=== PATIENT | female | born 1985 | race African-American/Black ===

== ENCOUNTER 2019-10-05 12:14 | Emergency (ER) | payer BC, OTHER ==
[2019-10-05] MEDS ORDERED: Magnesium Sulfate (4.06 MEQ/ML) 5 GM/10 ML SDV IV ONE (12:24)
[2019-10-05] MEDS ORDERED: Prochlorperazine 10 MG in Sodium Chloride 0.9% 50 ML IV ONE (12:24)
[2019-10-05] MEDS ORDERED: Sodium Chloride 0.9% 1,000 ML IV ONE (12:24)
[2019-10-05] MEDS ORDERED: Acetaminophen 500 MG Tab PO ONE (12:24)
[2019-10-05] MEDS ORDERED: diphenhydrAMINE 50 MG/ML SDV IVPUSH ONE (12:24)
--- NOTE | 2019-10-05 12:42 | CT ---
INDICATION: Stroke symptoms. TECHNIQUE: CT head without IV contrast. FINDINGS: Minimal mucosal thickening in the right maxillary sinus. No acute intracranial hemorrhage, edema, or mass effect. Minimal cerebral and cerebellar atrophy. Remainder negative. IMPRESSION: No acute intracranial disease. Please note that all CT scans at this facility use dose modulation, iterative reconstruction, and/or weight-based dosing when appropriate to reduce radiation dose to as low as reasonably achievable. Dictated by Chris Araiza MD @ Oct 05 2019 12:41PM Signed by Dr. Chris Araiza @ Oct 05 2019 12:41PM
[2019-10-05 12:45] LABS: BLOOD UREA NITROGEN,BUN 9 mg/dL (7.0-18.0); CARBON DIOXIDE,CO2 25.7 mmol/L (21.0-32.0); CHLORIDE,CL 106 mmol/L (98-107); GLUCOSE RANDOM 105 mg/dL (74-106); SODIUM,NA 140 mmol/L (136-145)
[2019-10-05] MEDS: Magnesium Sulfate/Water 2 GM in Premix Bag 1 BAG IV ONE ×2 (12:50→13:35)
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
== END 2019-10-05 13:56 | disposition home or self-care (01) ==
LOC: MW.ED 12:14
DX: R51 Headache (principal)
CPT/HCPCS: 36415; 70450; 80048; 84703; 85025; 85610; 85652; 85730; 93005; 96365; 96375; 99284; A9270; J0780; J1200; J7030; J7050; 99283; J3475

== ENCOUNTER 2021-04-23 09:25 | Observation (INO) | payer BC ==
[2021-04-23] MEDS ORDERED: Sodium Chloride 0.9% 1,000 ML IV ONE (09:55)
[2021-04-23] MEDS ORDERED: Ondansetron 4 MG/2 ML SDV ONE (10:12)
[2021-04-23] MEDS ORDERED: Ketorolac 15 MG/ML SDV ONE (10:12)
[2021-04-23] MEDS ORDERED: Ketorolac 30 MG/ML SDV IVPUSH ONE (10:17)
[2021-04-23] MEDS ORDERED: Ketorolac 15 MG/ML SDV IVPUSH STA (10:17)
[2021-04-23 10:31] LABS: BLOOD UREA NITROGEN,BUN 8 mg/dL (7.0-18.0); CARBON DIOXIDE,CO2 24.9 mmol/L (21.0-32.0); CHLORIDE,CL 104 mmol/L (98-107); GLUCOSE RANDOM 118 mg/dL (74-106); LIPASE 107 U/L (73-393); POTASSIUM,K 3.8 mmol/L (3.5-5.1); SODIUM,NA 136 mmol/L (136-145)
--- NOTE | 2021-04-23 10:33 | EDM.PDOC ---
ED HPI GENERAL MEDICAL PROBLEM - General Chief Complaint: Abdominal Pain Stated Complaint: REALLY BAD PAIN IN GUT Time Seen by Provider: 04/23/21 09:27 - History of Present Illness INITIAL COMMENTS - FREE TEXT/NARRATIVE: History of present illness: [] This patient began to have abdominal pain this morning. About 3 weeks ago she contracted COVID-19 and was test positive. Her symptoms have been over for more than 2 weeks. This morning she developed right upper quadrant pain with nausea. She is not vomiting at this point. The pain is markedly severe and sharp. Nothing really makes it worse or better. She is never had such pain before. She had a kidney stone with her in the past but this is not similar. Review of systems: As per history of present illness and below otherwise all systems reviewed and negative. Past medical history: As per history of present illness and as reviewed below otherwise noncontributory. Surgical history: As per history of present illness and as reviewed below otherwise n oncontributory. Social history: No reported history of drug or alcohol abuse. Family history: As per history of present illness and as reviewed below otherwise noncontributory. Physical exam: Constitutional - well developed, well-nourished and in no acute distress HEENT - normocephalic, no evidence of trauma - external nose and mouth normal - no mass in neck and no JVD - mucosae moist EYES - full EOM, PERRL, no icterus - no evidence of inflammation, injection, or drainage Respiratory - no respiratory distress, equal bilateral expansion, lungs clear to auscultation and no abnormal lung sounds Cardiovascular - Regular Rhythm with S1 and S2 appreciated and no murmur, gallop or rub. GI -tender in the right upper quadrant with palpable Vu sign positive. Guards right upper quadrant. Abdomen soft without distension or organomegaly - normal bowel sounds - no rebound Musculoskeletal no gross deformity of long bones or joints - no tenderness, swelling or edema Neurologic - Alert and oriented times four - CN II-XII grossly intact - motor sensory and coordination symmetrically normal Psychiatric - appropriate mood and affect with normal thought content Hematologic - No petechiae or purpura - mucosa appropriate color and sclera not pale - normal nail bed color and refill Integument - no rash or evidence of trauma - normal turgor Diagnostics: [] Therapeutics: [] Impression: [] Plan: [] Definitive disposition and diagnosis as appropriate pending reevaluation and review of above. Right Upper Abdomen Pain Score (Numeric/FACES): 4 - Related Data Allergies Allergy/AdvReac Type Severity Reaction Status Date / Time shellfish derived Allergy Anaphylactic Verified 04/23/21 09:38 Shock sulfur dioxide Allergy Cannot Verified 04/23/21 09:38 Remember Home Meds: Home Meds norgestimate-ethinyl estradioL [Ome-Zm-Rklxelci Tablet] 1 tab PO DAILY 04/23/21 [History] Past Medical History - Past Health History Medical/Surgical History: Denies Medical/Surgical History Psychiatric History: Reports: Bipolar Hematologic History: Reports: Anemia - Infectious Disease History Infectious Disease History: Reports: Novel Coronavirus Social & Family History - Family History Family Medical History: No Pertinent Family History - Tobacco Use Tobacco Use Status *Q: Current Every Day Tobacco User Years of Tobacco use: 4 Packs/Tins Daily: 0 - Caffeine Use Caffeine Use: Reports: Coffee - Recreational Drug Use Recreational Drug Use: No ED ROS GENERAL - Review of Systems Review Of Systems: Comprehensive ROS is negative, except as noted in HPI. ED EXAM, GENERAL - Physical Exam Exam: See Below Free Text/Narrative:: My physical exam is in the HPI Course - Vital Signs Text/Narrative:: 1157 the gallbladder is prominent on the CT with no obvious stone. Liver functions are elevated as well and compared to old chart that is new. Ultrasound done on an emergency basis to make sure she does not have a common duct stone obstructing her common duct and need to be transferred somewhere where she can have an ERCP. 1306 hrs. ultrasound reveals possible acute cholecystitis with cholelithiasis. The patient's pain is gone. She has no elevation of her total white count. The patient wants to schedule elective surgery. Her AST and ALT are slightly elevated. Discussed with Dr. Snowden and she felt like the patient should return immediately if her pain returns or she gets a fever confusion. The patient will make an appointment to schedule expeditious cholecystectomy if she does not have further symptoms. Last Recorded V/S: Last Vital Signs Temp 36.8 C 04/23/21 09:40 Pulse 76 04/23/21 09:40 Resp 18 04/23/21 09:40 BP 139/90 04/23/21 09:40 Pulse Ox 99 04/23/21 09:40 - Orders/Labs/Meds Labs: Laboratory Tests 04/23/21 04/23/21 04/23/21 Range/Units 09:55 09:55 11:15 WBC 10.84 (4.0-11.0) K/uL RBC 4.51 (4.30-5.90) M/uL Hgb 10.0 L (12.0-16.0) g/dL Hct 32.1 L (36.0-46.0) % MCV 71.2 L (80.0-98.0) fL MCH 22.2 L (27.0-32.0) pg MCHC 31.2 (31.0-37.0) g/dL RDW Std Deviation 50.3 (28.0-62.0) fl RDW Coeff of Ronni 19 H (11.0-15.0) % Plt Count 649 H (150-400) K/uL MPV 9.20 (7.40-12.00) fL Neut % (Auto) 77.6 (48.0-80.0) % Lymph % (Auto) 14.5 L (16.0-40.0) % [place] % (Auto) 7.3 (0.0-15.0) % Eos % (Auto) 0.4 (0.0-7.0) % Baso % (Auto) 0.2 (0.0-1.5) % Neut # (Auto) 8.4 H (1.4-5.7) K/uL Lymph # (Auto) 1.6 (0.6-2.4) K/uL [place] # (Auto) 0.8 (0.0-0.8) K/uL Eos # (Auto) 0.0 (0.0-0.7) K/uL Baso # (Auto) 0.0 (0.0-0.1) K/uL Nucleated RBC % 0.0 /100WBC Nucleated RBCs # 0 K/uL Sodium 136 (136-145) mmol/L Potassium 3.8 (3.5-5.1) mmol/L Chloride 104 (98-107) mmol/L Carbon Dioxide 24.9 (21.0-32.0) mmol/L BUN 8 (7.0-18.0) mg/dL Creatinine 0.9 (0.6-1.0) mg/dL Est Cr Clr Drug Dosing 98.76 mL/min Estimated GFR (MDRD) > 60.0 ml/min Glucose 118 H (74-106) mg/dL Calcium 8.1 L (8.5-10.1) mg/dL Total Bilirubin 0.5 (0.2-1.0) mg/dL AST 170 H (15-37) IU/L ALT 99 H (14-63) IU/L Alkaline Phosphatase 87 (46-116) U/L Total Protein 7.1 (6.4-8.2) g/dL Albumin 3.0 L (3.4-5.0) g/dL Globulin 4.1 H (2.6-4.0) g/dL Albumin/Globulin Ratio 0.7 L (0.9-1.6) Lipase 107 (73-393) U/L Urine Color YELLOW Urine Appearance CLEAR Urine pH 6.5 (5.0-8.0) Ur Specific [place] 1.020 (1.001-1.035) Urine Protein NEGATIVE (NEGATIVE) mg/dL Urine Glucose (UA) NEGATIVE (NEGATIVE) mg/dL Urine Ketones NEGATIVE (NEGATIVE) mg/dL Urine Occult Blood NEGATIVE (NEGATIVE) Urine Nitrite NEGATIVE (NEGATIVE) Urine Bilirubin NEGATIVE (NEGATIVE) Urine Urobilinogen 2.0 H (<2.0) EU/dL Ur Leukocyte Esterase NEGATIVE (NEGATIVE) Meds: Medications Discontinued Medications Generic Name Dose Route Start Last Admin Trade Name Freq PRN Reason Stop Dose Admin Sodium Chloride 1,000 mls @ 999 mls/hr 04/23/21 09:55 04/23/21 09:55 Normal Saline IV 04/23/21 10:55 999 mls/hr .Bolus ONE Administration Ketorolac Tromethamine Confirm 04/23/21 10:12 04/23/21 10:51 Ketorolac 15 Mg/Ml Sdv Administered 04/23/21 10:13 Not Given Dose 15 mg .ROUTE .STK-MED ONE Ketorolac Tromethamine 15 mg 04/23/21 10:17 04/23/21 11:04 Ketorolac 30 Mg/Ml Sdv IVPUSH 04/23/21 10:18 Not Given ONETIME ONE Ketorolac Tromethamine 15 mg 04/23/21 10:17 04/23/21 10:17 Ketorolac 15 Mg/Ml Sdv IVPUSH 04/23/21 10:18 15 mg ONETIME STA Administration Ondansetron HCl Confirm 04/23/21 10:12 04/23/21 10:52 Ondansetron 4 Mg/2 Ml Sdv Administered 04/23/21 10:13 Not Given Dose 4 mg .ROUTE .STK-MED ONE Ondansetron HCl 4 mg 04/23/21 10:49 04/23/21 11:03 Ondansetron 4 Mg/2 Ml Sdv IVPUSH 04/23/21 10:50 4 mg ONETIME ONE Administration Departure - Departure Time of Disposition: 13:07 Disposition: Home, Self-Care 01 Condition: Good Clinical Impression: Acute cholecystitis, Cholelithiasis, Biliary colic - Discharge Information Instructions: Cholelithiasis, [id number], Cholecystitis, [id number] Referrals: PCP,None [Primary Care Provider] - Forms: ED Department Discharge Additional Instructions: The surgeon Dr. Snowden wants you to return if you have even return of your pain. Certainly return if you have fever and confusion with pain in your abdomen. Regardless she should call the surgery department for expeditious scheduling of cholecystectomy with Dr. Snowden [facility] - General Surgery [address], [address] [place] [address] The following information is given to patients seen in the emergency department who are being discharged to home. This information is to outline your options for follow-up care. We provide all patients seen in our emergency department with a follow-up referral. The need for follow-up, as well as the timing and circumstances, are variable depending upon the specifics of your emergency department visit. If you don't have a primary care physician on staff, we will provide you with a referral. We always advise you to contact your personal physician following an emergency department visit to inform them of the circumstance of the visit and for follow-up with them and/or the need for any referrals to a consulting specialist. The emergency department will also refer you to a specialist when appropriate. This referral assures that you have the opportunity for follow-up care with a specialist. All of these measure are taken in an effort to provide you with optimal care, which includes your follow-up. Under all circumstances we always encourage you to contact your private physician who remains a resource for coordinating your care. When calling for follow-up care, please make the office aware that this follow-up is from your recent emergency room visit. If for any reason you are refused follow-up, please contact the [facility] Emergency Department at and asked to speak to the emergency department charge nurse. Sepsis Event Note (ED) - Evaluation Sepsis Screening Result: No Definite Risk - Focused Exam Vital Signs: Vital Signs Temp Pulse Resp BP Pulse Ox 04/23/21 09:40 36.8 C 76 18 139/90 99
[2021-04-23] MEDS ORDERED: Ondansetron 4 MG/2 ML SDV IVPUSH ONE (10:49)
--- NOTE | 2021-04-23 11:48 | CT ---
INDICATION: Right-sided abdominal and pelvic pain. TECHNIQUE: CT abdomen and pelvis without contrast. COMPARISON: None FINDINGS: No urolithiasis or hydronephrosis is present on this noncontrast enhanced exam. In the lower thorax there are no masses or effusions. The visualized lung bases are clear. The liver, spleen, pancreas, adrenal glands, kidneys, appendix, decompressed urinary bladder, uterus and right ovary appear normal. The gallbladder is mildly distended and could represent a fasting state. No cholelithiasis is evident with CT scanning. If symptoms warrant consider further assessment with gallbladder ultrasound. There is a 7 x 5 centimeter left adnexal cystic lesion likely representing an ovarian cyst. Ultrasound could be obtained for further assessment. No gastric or small bowel abnormalities are seen. A moderate amount of fecal loading is present within the proximal and mid colon. The abdominal aorta is normal in caliber with no lymphadenopathy evident. A small amount of ascites in the pelvis likely is physiologic. No osseous abnormalities are seen. IMPRESSION: 1. No urolithiasis or hydronephrosis on this noncontrast enhanced exam. 2. Mildly prominent gallbladder with no cholelithiasis seen. Gallbladder ultrasound could be obtained for further assessment. 3. Left adnexal/ovarian cyst. Pelvic ultrasound could be obtained to further characterize this. 4. Moderate amount of fecal loading in the proximal and mid colon. 5. Other findings are as noted above. Please note that all CT scans at this facility use dose modulation, iterative reconstruction, and/or weight-based dosing when appropriate to reduce radiation dose to as low as reasonably achievable. Dictated by Mayank Cosby MD @ 04/23/2021 11:47:34 AM (Electronically Signed)
--- NOTE | 2021-04-23 12:43 | US ---
INDICATION: Right upper abdominal pain. TECHNIQUE: Ultrasound abdomen complete. Sonographic images of the entire abdomen were obtained using burroughs-scale and color Doppler. COMPARISON: CT scanning of the abdomen pelvis performed earlier today. FINDINGS: The liver is homogeneous in echogenicity with no hepatic mass or intrahepatic biliary duct dilation. The gallbladder contains multiple dependent layering small gallstones with no gallbladder wall thickening. A small amount of pericholecystic fluid is seen and there is a reported positive sonographic Vu`s sign. The common duct measures 4 millimeters in maximum diameter which is within the normal range. No right renal or pancreatic abnormality is demonstrated IMPRESSION: 1. Cholelithiasis with mild pericholecystic fluid and a reported sonographic Vu sign. The gallbladder is mildly distended. Findings are suspicious for early acute cholecystitis. 2. Other findings are as discussed above. Dictated by Mayank Cosby MD @ 04/23/2021 12:40:49 PM (Electronically Signed)
[2021-04-23] MEDS ORDERED: Piperacillin/Tazobactam 4.5 GM in Sodium Chloride 0.9% 100 ML IV ONE (13:28)
[2021-04-23] MEDS ORDERED: Ondansetron 4 MG/2 ML SDV IVPUSH PRN (14:54)
[2021-04-23] MEDS ORDERED: HYDROmorphone 1 MG/ML Syringe IVPUSH PRN (14:54)
[2021-04-23] MEDS ORDERED: Sodium Chloride 0.9% 10 ML SDV IV PRN (14:54)
[2021-04-23] MEDS ORDERED: Sodium Chloride 0.9% 2.5 ML Syringe FLUSH PRN (14:54)
[2021-04-23] MEDS ORDERED: Sodium Chloride 0.9% 10 ML Syringe FLUSH PRN (14:54)
[2021-04-23] MEDS ORDERED: diphenhydrAMINE 50 MG/ML SDV IVPUSH PRN (14:54)
--- NOTE | 2021-04-23 15:12 | PCM.HP.2 ---
H&P History of Present Illness - General Date of Service: 04/23/21 Admit Problem/Dx: Admission Diagnosis/Problem Admission Diagnosis/Problem Cholecystitis Source of Information: Patient History Limitations: Reports: No Limitations - History of Present Illness Initial Comments - Free Text/Narative: Patient is a 36 year old female with a past medical history significant for c hronic anemia due to menorrhagia, asthma, COVID (diagnosed on April 05) who presents to the ER with upper abdominal pain. The pain started this morning. It woke her from sleep. It was located in the RUQ. It radiated to the back and into her right shoulder. The pain did not improve with positioning or going to the bathroom. She presented to the ER. She had stable vital signs. She is anemic wit h a hgb of 10. She is currently on control to control her menorrhagia. Her WBC was normal. Her Plt wer 649. Her ast and alt were midly elevated but bilirubin was normal. A CT scan was performed which was normal other than a mildly distended gallbladder. US was performed which showed cholelithiasis with mild pericholecystic fluid and positive berg's sign consistent with early acute cholecystitis. she was given fluids and pain meds with improvement in her pain. She denies ever needing nebulizers this month with her COVID infection. She denies any respiratory symptoms today. She denies fever. Right Upper Abdomen Pain Score (Numeric/FACES): 4 - Related Data Allergies/Adverse Reactions: Allergies Allergy/AdvReac Type Severity Reaction Status Date / Time shellfish derived Allergy Anaphylactic Verified 04/23/21 09:38 Shock sulfur dioxide Allergy Cannot Verified 04/23/21 09:38 Remember Home Medications: Home Meds norgestimate-ethinyl estradioL [Brl-Tl-Oeqxrhyn Tablet] 1 tab PO DAILY 04/23/21 [History] Past Medical History - Past Health History Medical/Surgical History: Denies Medical/Surgical History Respiratory History: Reports: Asthma, Other (See Below) (recent COVID infection) Gastrointestinal History: Reports: Other (See Below) (Umbilical hernia) 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: 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 Psychiatric History: Reports: Bipolar Hematologic History: Reports: Anemia - Infectious Disease History Infectious Disease History: Reports: Novel Coronavirus - Past Surgical History HEENT Surgical History: Reports: None Cardiovascular Surgical History: Reports: None Respiratory Surgical History: Reports: None GI Surgical History: Reports: Hernia, Abdominal Female Surgical History: Reports: Tubal Ligation Endocrine Surgical History: Reports: None Social & Family History - Family History Family Medical History: No Pertinent Family History - Tobacco Use Tobacco Use Status *Q: Current Every Day Tobacco User Years of Tobacco use: 4 Packs/Tins Daily: 0 - Caffeine Use Caffeine Use: Reports: Coffee - Recreational Drug Use Recreational Drug Use: No H&P Review of Systems - Review of Systems: Review Of Systems: Comprehensive ROS is negative, except as noted in HPI. Exam - Exam Exam: See Below - Vital Signs Vital Signs: Last Vital Signs Temp 36.8 C 04/23/21 09:40 Pulse 70 04/23/21 14:46 Resp 18 04/23/21 09:40 BP 133/85 04/23/21 11:21 Pulse Ox 99 04/23/21 14:46 Weight: 103.419 kg - Exam Quality Assessment: Supplemental Oxygen General: Alert, Oriented HEENT: Conjunctiva Clear, Mucosa Moist & [place], Posterior Pharynx Clear Neck: Supple, Trachea Midline Lungs: Clear to Auscultation, Normal Respiratory Effort Cardiovascular: Regular Rate, Regular Rhythm GI/Abdominal Exam: Soft, Non-Tender, No Distention, No Mass - Patient Data Lab Results Last 24 hrs: Laboratory Results - last 24 hr 04/23/21 04/23/21 04/23/21 Range/Units 09:55 09:55 11:15 WBC 10.84 (4.0-11.0) K/uL RBC 4.51 (4.30-5.90) M/uL Hgb 10.0 L (12.0-16.0) g/dL Hct 32.1 L (36.0-46.0) % MCV 71.2 L (80.0-98.0) fL MCH 22.2 L (27.0-32.0) pg MCHC 31.2 (31.0-37.0) g/dL RDW Std Deviation 50.3 (28.0-62.0) fl RDW Coeff of Ronni 19 H (11.0-15.0) % Plt Count 649 H (150-400) K/uL MPV 9.20 (7.40-12.00) fL Neut % (Auto) 77.6 (48.0-80.0) % Lymph % (Auto) 14.5 L (16.0-40.0) % [place] % (Auto) 7.3 (0.0-15.0) % Eos % (Auto) 0.4 (0.0-7.0) % Baso % (Auto) 0.2 (0.0-1.5) % Neut # (Auto) 8.4 H (1.4-5.7) K/uL Lymph # (Auto) 1.6 (0.6-2.4) K/uL [place] # (Auto) 0.8 (0.0-0.8) K/uL Eos # (Auto) 0.0 (0.0-0.7) K/uL Baso # (Auto) 0.0 (0.0-0.1) K/uL Nucleated RBC % 0.0 /100WBC Nucleated RBCs # 0 K/uL Sodium 136 (136-145) mmol/L Potassium 3.8 (3.5-5.1) mmol/L Chloride 104 (98-107) mmol/L Carbon Dioxide 24.9 (21.0-32.0) mmol/L BUN 8 (7.0-18.0) mg/dL Creatinine 0.9 (0.6-1.0) mg/dL Est Cr Clr Drug Dosing 98.76 mL/min Estimated GFR (MDRD) > 60.0 ml/min Glucose 118 H (74-106) mg/dL Calcium 8.1 L (8.5-10.1) mg/dL Total Bilirubin 0.5 (0.2-1.0) mg/dL AST 170 H (15-37) IU/L ALT 99 H (14-63) IU/L Alkaline Phosphatase 87 (46-116) U/L Total Protein 7.1 (6.4-8.2) g/dL Albumin 3.0 L (3.4-5.0) g/dL Globulin 4.1 H (2.6-4.0) g/dL Albumin/Globulin Ratio 0.7 L (0.9-1.6) Lipase 107 (73-393) U/L Urine Color YELLOW Urine Appearance CLEAR Urine pH 6.5 (5.0-8.0) Ur Specific [place] 1.020 (1.001-1.035) Urine Protein NEGATIVE (NEGATIVE) mg/dL Urine Glucose (UA) NEGATIVE (NEGATIVE) mg/dL Urine Ketones NEGATIVE (NEGATIVE) mg/dL Urine Occult Blood NEGATIVE (NEGATIVE) Urine Nitrite NEGATIVE (NEGATIVE) Urine Bilirubin NEGATIVE (NEGATIVE) Urine Urobilinogen 2.0 H (<2.0) EU/dL Ur Leukocyte Esterase NEGATIVE (NEGATIVE) Result Diagrams: 04/23/21 09:55 04/23/21 09:55 Sepsis Event Note - Evaluation Sepsis Screening Result: No Definite Risk - Focused Exam Vital Signs: Vital Signs Temp Pulse Resp BP Pulse Ox 04/23/21 14:46 70 99 04/23/21 11:21 60 133/85 96 04/23/21 10:44 60 136/81 98 04/23/21 10:13 73 146/84 H 100 04/23/21 09:40 36.8 C 76 18 139/90 99 - Problem List (1) Acute cholecystitis SNOMED Code(s): 56843212 ICD Code: K81.0 - ACUTE CHOLECYSTITIS Status: Acute Current Visit: Yes Problem List Initiated/Reviewed/Updated: Yes Orders Last 24hrs: Active Orders 24 hr Category Date Time Status Patient Status [ADT] Routine ADT 04/23/21 14:54 Active EKG Documentation Completion [RC] STAT Care 04/23/21 14:38 Active Intake and Output [RC] QSHIFT Care 04/23/21 14:59 Active Oxygen Therapy [RC] PRN Care 04/23/21 14:54 Active Up ad Elvia [RC] ASDIRECTED Care 04/23/21 14:54 Active Vital Signs [RC] PER UNIT ROUTINE Care 04/23/21 14:54 Active Clear Liquid Diet [DIET] Diet 04/23/21 Lunch Active NPO After Midnight [Nothing per Oral After Midnight Diet 04/23/21 Dinner Active Diet] [DIET] Chest 1V Frontal [CR] Stat Exams 04/23/21 14:38 Taken CBC W/O DIFF,HEMOGRAM [HEME] AM Lab 04/24/21 05:11 Ordered COMPREHENSIVE METABOLIC PN,CMP [CHEM] AM Lab 04/24/21 05:11 Ordered TYPE AND SCREEN [BBK] Routine Lab 04/23/21 14:50 Received Acetaminophen/oxyCODONE [Percocet 325-5 MG] Med 04/23/21 14:54 Ordered 2 tab PO Q4H PRN HYDROmorphone [Dilaudid] Med 04/23/21 14:54 Ordered 0.5 mg IVPUSH Q1H PRN Lactated Ringers [Ringers, Lactated] 1,000 ml Med 04/23/21 15:00 Ordered IV ASDIRECTED Ondansetron [Zofran] Med 04/23/21 14:54 Ordered 4 mg IVPUSH Q6H PRN Piperacillin/Tazobactam [Piperacil-Tazobact] 3.375 gm Med 04/23/21 20:30 Ordered Sodium Chloride 0.9% [Normal Saline] 50 ml IV Q6H Sodium Chloride 0.9% [Normal Saline] Med 04/23/21 14:54 Ordered 10 ml IV ASDIRECTED PRN Sodium Chloride 0.9% [Saline Flush] Med 04/23/21 14:54 Ordered 10 ml FLUSH ASDIRECTED PRN Sodium Chloride 0.9% [Saline Flush] Med 04/23/21 14:54 Ordered 2.5 ml FLUSH ASDIRECTED PRN diphenhydrAMINE [Benadryl] Med 04/23/21 14:54 Ordered 25 mg IVPUSH Q4H PRN Peripheral IV Insertion Adult [OM.PC] Urgent Oth 04/23/21 14:54 Ordered Resuscitation Status Routine Resus Stat 04/23/21 14:54 Ordered Medication Orders Diphenhydramine HCl (Diphenhydramine 50 Mg/Ml Sdv) 25 mg IVPUSH Q4H PRN PRN Reason: Itching Hydromorphone HCl (Hydromorphone 2 Mg/Ml Syringe) 0.5 mg IVPUSH Q1H PRN PRN Reason: Pain (severe 7-10) Lactated Ringer's (Ringers, Lactated) 1,000 mls @ 125 mls/hr IV ASDIRECTED YUSEF Piperacillin Sod/Tazobactam (Sod 3.375 gm/ Sodium Chloride) 50 mls @ 100 mls/hr IV Q6H YUSEF Ondansetron HCl (Ondansetron 4 Mg/2 Ml Sdv) 4 mg IVPUSH Q6H PRN PRN Reason: Nausea/Vomiting Oxycodone/Acetaminophen (Acetaminophen/Oxycodone 325-5 Mg Tab) 2 tab PO Q4H PRN PRN Reason: Pain (moderate 4-6) Sodium Chloride (Sodium Chloride 0.9% 10 Ml Syringe) 10 ml FLUSH ASDIRECTED PRN PRN Reason: Keep Vein Open Sodium Chloride (Sodium Chloride 0.9% 2.5 Ml Syringe) 2.5 ml FLUSH ASDIRECTED PRN PRN Reason: Keep Vein Open Sodium Chloride (Sodium Chloride 0.9% 10 Ml Sdv) 10 ml IV ASDIRECTED PRN PRN Reason: IV Use Assessment/Plan Comment:: The patient and I discussed the pathophysiology of biliary disease. The treatment for acute cholecystitis is cholecystectomy. With her recent COVID infection she is at higher risk for complications, however this needs to be performed. I will attempt this laparoscopically but convert to open should I be unable to perform this safely. We discussed the risks including respiratory comp lications, the risk for DVTs, the risk of bleeding, infection or damaging surrounding structures. She verbalized understanding and wishes to proceed. Will get a CXR, EKG and a type and screen before surgery tomorrow. I did speak to anesthesia about her case.
--- NOTE | 2021-04-23 15:25 | CR ---
INDICATION: COVID-19 positive. TECHNIQUE: Chest 1 view. COMPARISON: None. FINDINGS: Cardiovascular and mediastinum: Heart size and vasculature are normal in caliber and appearance. Lungs and pleural spaces: Lungs are clear. No sign of infiltrate or mass. No sign of pleural effusion. No pneumothorax. Bones and soft tissues: No significant findings. IMPRESSION: Negative chest. Lungs are clear. Dictated by Ari Camacho MD @ 04/23/2021 3:23:44 PM (Electronically Signed)
[2021-04-23] MEDS: Lactated Ringers 1,000 ML IV SCH (18:48)
[2021-04-23] MEDS: Piperacillin/Tazobactam 3.375 GM in Sodium Chloride 0.9% 50 ML IV SCH (20:19)
[2021-04-24] MEDS: Piperacillin/Tazobactam 3.375 GM in Sodium Chloride 0.9% 50 ML IV SCH ×2 (02:40→08:44)
[2021-04-24] MEDS: Lactated Ringers 1,000 ML IV SCH (03:22)
[2021-04-24 06:25] LABS: BLOOD UREA NITROGEN,BUN 4 mg/dL (7.0-18.0); CARBON DIOXIDE,CO2 27.1 mmol/L (21.0-32.0); CHLORIDE,CL 104 mmol/L (98-107); GLUCOSE RANDOM 91 mg/dL (74-106); POTASSIUM,K 4.1 mmol/L (3.5-5.1); SODIUM,NA 139 mmol/L (136-145)
[2021-04-24] MEDS ORDERED: Bupivacaine 0.5% 30 ML SDV ONE (08:32)
[2021-04-24] MEDS ORDERED: Octyl 2-Cyanoacrylate 1 Tube ONE (08:32)
--- NOTE | 2021-04-24 08:44 | PCM.SURGPN ---
- General Info Date of Service: 04/24/21 Functional Status: Reports: Pain Controlled, Urinating. Denies: New Symptoms - Review of Systems General: Reports: No Symptoms Pulmonary: Reports: No Symptoms Cardiovascular: Reports: No Symptoms Gastrointestinal: Reports: No Symptoms Musculoskeletal: Reports: No Symptoms - Patient Data Vitals - Most Recent: Last Vital Signs Temp 36.6 C 04/24/21 08:01 Pulse 77 04/24/21 08:01 Resp 16 04/24/21 08:01 BP 129/82 04/24/21 08:01 Pulse Ox 95 04/24/21 08:01 Weight - Most Recent: 131.36 kg I&O - Last 24 Hours: Intake & Output 04/23/21 04/24/21 04/24/21 22:59 06:59 14:59 Intake Total 50 1889 Output Total 1200 Balance 50 689 Lab Results Last 24 Hrs: Laboratory Results - last 24 hr 04/23/21 04/23/21 04/23/21 Range/Units 09:55 09:55 11:15 WBC 10.84 (4.0-11.0) K/uL RBC 4.51 (4.30-5.90) M/uL Hgb 10.0 L (12.0-16.0) g/dL Hct 32.1 L (36.0-46.0) % MCV 71.2 L (80.0-98.0) fL MCH 22.2 L (27.0-32.0) pg MCHC 31.2 (31.0-37.0) g/dL RDW Std Deviation 50.3 (28.0-62.0) fl RDW Coeff of Ronni 19 H (11.0-15.0) % Plt Count 649 H (150-400) K/uL MPV 9.20 (7.40-12.00) fL Neut % (Auto) 77.6 (48.0-80.0) % Lymph % (Auto) 14.5 L (16.0-40.0) % [place] % (Auto) 7.3 (0.0-15.0) % Eos % (Auto) 0.4 (0.0-7.0) % Baso % (Auto) 0.2 (0.0-1.5) % Neut # (Auto) 8.4 H (1.4-5.7) K/uL Lymph # (Auto) 1.6 (0.6-2.4) K/uL [place] # (Auto) 0.8 (0.0-0.8) K/uL Eos # (Auto) 0.0 (0.0-0.7) K/uL Baso # (Auto) 0.0 (0.0-0.1) K/uL Nucleated RBC % 0.0 /100WBC Nucleated RBCs # 0 K/uL Sodium 136 (136-145) mmol/L Potassium 3.8 (3.5-5.1) mmol/L Chloride 104 (98-107) mmol/L Carbon Dioxide 24.9 (21.0-32.0) mmol/L BUN 8 (7.0-18.0) mg/dL Creatinine 0.9 (0.6-1.0) mg/dL Est Cr Clr Drug Dosing 98.76 mL/min Estimated GFR (MDRD) > 60.0 ml/min Glucose 118 H (74-106) mg/dL Calcium 8.1 L (8.5-10.1) mg/dL Total Bilirubin 0.5 (0.2-1.0) mg/dL AST 170 H (15-37) IU/L ALT 99 H (14-63) IU/L Alkaline Phosphatase 87 (46-116) U/L Total Protein 7.1 (6.4-8.2) g/dL Albumin 3.0 L (3.4-5.0) g/dL Globulin 4.1 H (2.6-4.0) g/dL Albumin/Globulin Ratio 0.7 L (0.9-1.6) Lipase 107 (73-393) U/L HCG, Qual (NEG) Urine Color YELLOW Urine Appearance CLEAR Urine pH 6.5 (5.0-8.0) Ur Specific [place] 1.020 (1.001-1.035) Urine Protein NEGATIVE (NEGATIVE) mg/dL Urine Glucose (UA) NEGATIVE (NEGATIVE) mg/dL Urine Ketones NEGATIVE (NEGATIVE) mg/dL Urine Occult Blood NEGATIVE (NEGATIVE) Urine Nitrite NEGATIVE (NEGATIVE) Urine Bilirubin NEGATIVE (NEGATIVE) Urine Urobilinogen 2.0 H (<2.0) EU/dL Ur Leukocyte Esterase NEGATIVE (NEGATIVE) Blood Type Antibody Screen 04/23/21 04/24/21 04/24/21 Range/Units 14:50 05:46 05:46 WBC 9.74 (4.0-11.0) K/uL RBC 4.21 L (4.30-5.90) M/uL Hgb 9.2 L (12.0-16.0) g/dL Hct 30.3 L (36.0-46.0) % MCV 72.0 L (80.0-98.0) fL MCH 21.9 L (27.0-32.0) pg MCHC 30.4 L (31.0-37.0) g/dL RDW Std Deviation 50.7 (28.0-62.0) fl RDW Coeff of Ronni 19 H (11.0-15.0) % Plt Count 604 H (150-400) K/uL MPV 9.20 (7.40-12.00) fL Neut % (Auto) (48.0-80.0) % Lymph % (Auto) (16.0-40.0) % [place] % (Auto) (0.0-15.0) % Eos % (Auto) (0.0-7.0) % Baso % (Auto) (0.0-1.5) % Neut # (Auto) (1.4-5.7) K/uL Lymph # (Auto) (0.6-2.4) K/uL [place] # (Auto) (0.0-0.8) K/uL Eos # (Auto) (0.0-0.7) K/uL Baso # (Auto) (0.0-0.1) K/uL Nucleated RBC % 0.0 /100WBC Nucleated RBCs # 0 K/uL Sodium 139 (136-145) mmol/L Potassium 4.1 (3.5-5.1) mmol/L Chloride 104 (98-107) mmol/L Carbon Dioxide 27.1 (21.0-32.0) mmol/L BUN 4 L (7.0-18.0) mg/dL Creatinine 1.0 (0.6-1.0) mg/dL Est Cr Clr Drug Dosing 88.89 mL/min Estimated GFR (MDRD) > 60.0 ml/min Glucose 91 (74-106) mg/dL Calcium 8.7 (8.5-10.1) mg/dL Total Bilirubin 0.5 (0.2-1.0) mg/dL AST 116 H (15-37) IU/L ALT 167 H (14-63) IU/L Alkaline Phosphatase 89 (46-116) U/L Total Protein 6.6 (6.4-8.2) g/dL Albumin 2.7 L (3.4-5.0) g/dL Globulin 3.9 (2.6-4.0) g/dL Albumin/Globulin Ratio 0.7 L (0.9-1.6) Lipase (73-393) U/L HCG, Qual (NEG) Urine Color Urine Appearance Urine pH (5.0-8.0) Ur Specific [place] (1.001-1.035) Urine Protein (NEGATIVE) mg/dL Urine Glucose (UA) (NEGATIVE) mg/dL Urine Ketones (NEGATIVE) mg/dL Urine Occult Blood (NEGATIVE) Urine Nitrite (NEGATIVE) Urine Bilirubin (NEGATIVE) Urine Urobilinogen (<2.0) EU/dL Ur Leukocyte Esterase (NEGATIVE) Blood Type O POSITIVE Antibody Screen NEGATIVE 04/24/21 Range/Units 05:46 WBC (4.0-11.0) K/uL RBC (4.30-5.90) M/uL Hgb (12.0-16.0) g/dL Hct (36.0-46.0) % MCV (80.0-98.0) fL MCH (27.0-32.0) pg MCHC (31.0-37.0) g/dL RDW Std Deviation (28.0-62.0) fl RDW Coeff of Ronni (11.0-15.0) % Plt Count (150-400) K/uL MPV (7.40-12.00) fL Neut % (Auto) (48.0-80.0) % Lymph % (Auto) (16.0-40.0) % [place] % (Auto) (0.0-15.0) % Eos % (Auto) (0.0-7.0) % Baso % (Auto) (0.0-1.5) % Neut # (Auto) (1.4-5.7) K/uL Lymph # (Auto) (0.6-2.4) K/uL [place] # (Auto) (0.0-0.8) K/uL Eos # (Auto) (0.0-0.7) K/uL Baso # (Auto) (0.0-0.1) K/uL Nucleated RBC % /100WBC Nucleated RBCs # K/uL Sodium (136-145) mmol/L Potassium (3.5-5.1) mmol/L Chloride (98-107) mmol/L Carbon Dioxide (21.0-32.0) mmol/L BUN (7.0-18.0) mg/dL Creatinine (0.6-1.0) mg/dL Est Cr Clr Drug Dosing mL/min Estimated GFR (MDRD) ml/min Glucose (74-106) mg/dL Calcium (8.5-10.1) mg/dL Total Bilirubin (0.2-1.0) mg/dL AST (15-37) IU/L ALT (14-63) IU/L Alkaline Phosphatase (46-116) U/L Total Protein (6.4-8.2) g/dL Albumin (3.4-5.0) g/dL Globulin (2.6-4.0) g/dL Albumin/Globulin Ratio (0.9-1.6) Lipase (73-393) U/L HCG, Qual NEGATIVE (NEG) Urine Color Urine Appearance Urine pH (5.0-8.0) Ur Specific [place] (1.001-1.035) Urine Protein (NEGATIVE) mg/dL Urine Glucose (UA) (NEGATIVE) mg/dL Urine Ketones (NEGATIVE) mg/dL Urine Occult Blood (NEGATIVE) Urine Nitrite (NEGATIVE) Urine Bilirubin (NEGATIVE) Urine Urobilinogen (<2.0) EU/dL Ur Leukocyte Esterase (NEGATIVE) Blood Type Antibody Screen Med Orders - Current: Current Medications Diphenhydramine HCl (Diphenhydramine 50 Mg/Ml Sdv) 25 mg IVPUSH Q4H PRN PRN Reason: Itching Hydromorphone HCl (Hydromorphone 1 Mg/Ml Syringe) 0.5 mg IVPUSH Q1H PRN PRN Reason: Pain (severe 7-10) Lactated Ringer's (Ringers, Lactated) 1,000 mls @ 125 mls/hr IV ASDIRECTED COUNTS INCLUDE 234 BEDS AT THE [facility] Last Admin: 04/24/21 03:22 Dose: 125 mls/hr Documented by: Piperacillin Sod/Tazobactam (Sod 3.375 gm/ Sodium Chloride) 50 mls @ 100 mls/hr IV Q6H YUSEF Last Admin: 04/24/21 02:40 Dose: 100 mls/hr Documented by: Ondansetron HCl (Ondansetron 4 Mg/2 Ml Sdv) 4 mg IVPUSH Q6H PRN PRN Reason: Nausea/Vomiting Oxycodone/Acetaminophen (Acetaminophen/Oxycodone 325-5 Mg Tab) 2 tab PO Q4H PRN PRN Reason: Pain (moderate 4-6) Sodium Chloride (Sodium Chloride 0.9% 10 Ml Syringe) 10 ml FLUSH ASDIRECTED PRN PRN Reason: Keep Vein Open Sodium Chloride (Sodium Chloride 0.9% 2.5 Ml Syringe) 2.5 ml FLUSH ASDIRECTED PRN PRN Reason: Keep Vein Open Sodium Chloride (Sodium Chloride 0.9% 10 Ml Sdv) 10 ml IV ASDIRECTED PRN PRN Reason: IV Use Discontinued Medications Bupivacaine HCl (Bupivacaine 0.5% 30 Ml Sdv) Confirm Administered Dose 30 ml .ROUTE .STK-MED ONE Stop: 04/24/21 08:33 Sodium Chloride (Normal Saline) 1,000 mls @ 999 mls/hr IV .Bolus ONE Stop: 04/23/21 10:55 Last Admin: 04/23/21 09:55 Dose: 999 mls/hr Documented by: Piperacillin Sod/Tazobactam (Sod 4.5 gm/ Sodium Chloride) 100 mls @ 100 mls/hr IV ONETIME ONE Stop: 04/23/21 14:27 Last Admin: 04/23/21 14:04 Dose: 100 mls/hr Documented by: Ketorolac Tromethamine (Ketorolac 15 Mg/Ml Sdv) Confirm Administered Dose 15 mg .ROUTE .STK-MED ONE Stop: 04/23/21 10:13 Last Admin: 04/23/21 10:51 Dose: Not Given Documented by: Ketorolac Tromethamine (Ketorolac 30 Mg/Ml Sdv) 15 mg IVPUSH ONETIME ONE Stop: 04/23/21 10:18 Last Admin: 04/23/21 11:04 Dose: Not Given Documented by: Ketorolac Tromethamine (Ketorolac 15 Mg/Ml Sdv) 15 mg IVPUSH ONETIME STA Stop: 04/23/21 10:18 Last Admin: 04/23/21 10:17 Dose: 15 mg Documented by: Octyl Cyanoacrylate (Octyl 2-Cyanoacrylate 1 Tube) Confirm Administered Dose 1 applic .ROUTE .STK-MED ONE Stop: 04/24/21 08:33 Ondansetron HCl (Ondansetron 4 Mg/2 Ml Sdv) Confirm Administered Dose 4 mg .ROUTE .STK-MED ONE Stop: 04/23/21 10:13 Last Admin: 04/23/21 10:52 Dose: Not Given Documented by: Ondansetron HCl (Ondansetron 4 Mg/2 Ml Sdv) 4 mg IVPUSH ONETIME ONE Stop: 04/23/21 10:50 Last Admin: 04/23/21 11:03 Dose: 4 mg Documented by: - Exam General: Alert, Oriented, Cooperative HEENT: Pupils Equal, Pupils Reactive Lungs: Normal Respiratory Effort Cardiovascular: Regular Rate GI/Abdominal Exam: Soft, Non-Tender, No Distention, No Mass, Hernia (umbilical ) Sepsis Event Note - Evaluation Sepsis Screening Result: No Definite Risk - Focused Exam Vital Signs: Vital Signs Temp Pulse Resp BP Pulse Ox 04/24/21 08:01 36.6 C 77 16 129/82 95 04/24/21 03:46 36.3 C 62 15 127/61 95 04/24/21 00:41 36.9 C 60 15 130/76 98 - Problem List & Annotations (1) Acute cholecystitis SNOMED Code(s): 93879986 Code(s): K81.0 - ACUTE CHOLECYSTITIS Status: Acute Current Visit: Yes - Problem List Review Problem List Initiated/Reviewed/Updated: Yes - My Orders Last 24 Hours: Active Orders 24 hr Category Date Time Status Patient Status [ADT] Routine ADT 04/23/21 14:54 Active Intake and Output [RC] QSHIFT Care 04/23/21 14:59 Active Oxygen Therapy [RC] PRN Care 04/23/21 14:54 Active Up ad [place]via [RC] ASDIRECTED Care 04/23/21 14:54 Active Vital Signs [RC] Q4H Care 04/23/21 14:54 Active Clear Liquid Diet [DIET] Diet 04/23/21 Lunch Active NPO After Midnight [Nothing per Oral After Midnight Diet 04/23/21 Dinner Active Diet] [DIET] Acetaminophen/oxyCODONE [Percocet 325-5 MG] Med 04/23/21 14:54 Active 2 tab PO Q4H PRN HYDROmorphone [Dilaudid] Med 04/23/21 14:54 Active 0.5 mg IVPUSH Q1H PRN Lactated Ringers [Ringers, Lactated] 1,000 ml Med 04/23/21 15:00 Active IV ASDIRECTED Ondansetron [Zofran] Med 04/23/21 14:54 Active 4 mg IVPUSH Q6H PRN Piperacillin/Tazobactam [Piperacil-Tazobact] 3.375 gm Med 04/23/21 20:30 Active Sodium Chloride 0.9% [Normal Saline] 50 ml IV Q6H Sodium Chloride 0.9% [Normal Saline] Med 04/23/21 14:54 Active 10 ml IV ASDIRECTED PRN Sodium Chloride 0.9% [Saline Flush] Med 04/23/21 14:54 Active 10 ml FLUSH ASDIRECTED PRN Sodium Chloride 0.9% [Saline Flush] Med 04/23/21 14:54 Active 2.5 ml FLUSH ASDIRECTED PRN diphenhydrAMINE [Benadryl] Med 04/23/21 14:54 Active 25 mg IVPUSH Q4H PRN Peripheral IV Insertion Adult [OM.PC] Urgent Oth 04/23/21 14:54 Ordered Resuscitation Status Routine Resus Stat 04/23/21 14:54 Ordered Medication Orders Diphenhydramine HCl (Diphenhydramine 50 Mg/Ml Sdv) 25 mg IVPUSH Q4H PRN PRN Reason: Itching Hydromorphone HCl (Hydromorphone 1 Mg/Ml Syringe) 0.5 mg IVPUSH Q1H PRN PRN Reason: Pain (severe 7-10) Lactated Ringer's (Ringers, Lactated) 1,000 mls @ 125 mls/hr IV ASDIRECTED YUSEF Last Admin: 04/24/21 03:22 Dose: 125 mls/hr Documented by: Infusion: 04/24/21 02:48 Dose: 125 mls/hr Documented by: Admin: 04/23/21 18:48 Dose: 125 mls/hr Documented by: LEANDRO Piperacillin Sod/Tazobactam (Sod 3.375 gm/ Sodium Chloride) 50 mls @ 100 mls/hr IV Q6H COUNTS INCLUDE 234 BEDS AT THE [facility] Last Admin: 04/24/21 02:40 Dose: 100 mls/hr Documented by: Infusion: 04/23/21 20:49 Dose: 100 mls/hr Documented by: Admin: 04/23/21 20:19 Dose: 100 mls/hr Documented by: SANJUANITA Ondansetron HCl (Ondansetron 4 Mg/2 Ml Sdv) 4 mg IVPUSH Q6H PRN PRN Reason: Nausea/Vomiting Oxycodone/Acetaminophen (Acetaminophen/Oxycodone 325-5 Mg Tab) 2 tab PO Q4H PRN PRN Reason: Pain (moderate 4-6) Sodium Chloride (Sodium Chloride 0.9% 10 Ml Syringe) 10 ml FLUSH ASDIRECTED PRN PRN Reason: Keep Vein Open Sodium Chloride (Sodium Chloride 0.9% 2.5 Ml Syringe) 2.5 ml FLUSH ASDIRECTED PRN PRN Reason: Keep Vein Open Sodium Chloride (Sodium Chloride 0.9% 10 Ml Sdv) 10 ml IV ASDIRECTED PRN PRN Reason: IV Use - Plan Plan (Free Text/Narrative):: The patient and I discussed that she has an umbilical hernia. I will use this for one of my port sites and close it at the end of surgery. She is in agreement with this. I explained that I will just repair it with suture at this time, and there is a chance of returning again. When I review her images she has rectus diastasis and with this area being repaired in the past, her fascia in the area is weak. It was also mentioned in her CT report that she has a left adenexal cyst. There is limited US coverage on weekends, so I did not get a pelvic US. During the case, I will attempt to photograph this. I told her she will need follow up for this with a balling head tender. Her hgb came down to 9.2 which is not unexpected with her fluid resuscitation. She was typed and screened yesterday. AST and ALT relatively unchanged. Her bili is normal. Will proceed to the OR this am.
[2021-04-24] MEDS ORDERED: Ondansetron 4 MG/2 ML SDV ONE (08:45)
[2021-04-24] MEDS ORDERED: Sugammadex Sodium 200 MG/2 ML VIAL ONE (08:45)
[2021-04-24] MEDS ORDERED: Rocuronium Bromide 50 MG/5 ML Syringe ONE (08:45)
[2021-04-24] MEDS ORDERED: Lidocaine 2% 5 ML SDV ONE (08:45)
[2021-04-24] MEDS ORDERED: Propofol 200 MG/20 ML SDV ONE (08:45)
[2021-04-24] MEDS ORDERED: fentaNYL 100 MCG/2 ML SDV ONE ×3 (08:46→11:16)
[2021-04-24] MEDS ORDERED: Midazolam 1 MG/ML 2 ML SDV ONE (08:46)
[2021-04-24] MEDS ORDERED: Indocyanine Green 25 MG SDV ONE (09:03)
[2021-04-24] MEDS ORDERED: fentaNYL 100 MCG/2 ML SDV IVPUSH PRN (09:42)
[2021-04-24] MEDS ORDERED: Ondansetron 4 MG/2 ML SDV IVPUSH PRN (09:42)
[2021-04-24] MEDS ORDERED: HYDROmorphone 1 MG/ML Syringe IVPUSH PRN (09:42)
[2021-04-24] MEDS ORDERED: Naloxone 0.4 MG/ML SDV IVPUSH PRN (09:42)
[2021-04-24] MEDS ORDERED: Albuterol 0.083% 2.5 MG/3 ML Neb Soln NEB PRN (09:42)
[2021-04-24] MEDS ORDERED: Metoclopramide 10 MG/2 ML SDV IVPUSH PRN (09:42)
[2021-04-24] MEDS ORDERED: Morphine 2 MG/ML SYRINGE IVPUSH PRN (09:42)
--- NOTE | 2021-04-24 09:48 | PCM.POSTAN ---
POST ANESTHESIA ASSESSMENT - MENTAL STATUS Mental Status: Alert, Oriented - VITAL SIGNS Vital Signs: Last Vital Signs Temp 37.5 c 04/24/21 1134 Pulse 85 04/24/21 1134 Resp 16 04/24/21 1134 BP 124/75 04/24/21 1134 Pulse Ox 99 04/24/21 1134 - RESPIRATORY Respiratory Status: Respiratory Rate WNL, Airway Patent, O2 Saturation Stable - CARDIOVASCULAR CV Status: Pulse Rate WNL, Blood Pressure Stable - GASTROINTESTINAL GI Status: No Symptoms - POST OP HYDRATION Hydration Status: Adequate & Stable
--- NOTE | 2021-04-24 09:48 | PCM.PREANE ---
Preanesthetic Assessment - Procedure Proposed Procedure: Lap Aleyda and umbilical hernia repair. - Anesthesia/Transfusion/Family Hx Anesthesia History: Prior Anesthesia Without Reaction Family History of Anesthesia Reaction: No - Review of Systems General: No Symptoms Pulmonary: No Symptoms Cardiovascular: No Symptoms Gastrointestinal: Abdominal Pain, Decreased Appetite, Nausea Neurological: No Symptoms Other: Reports: None - Physical Assessment NPO Status Date: 04/24/21 NPO Status Time: 00:00 Vital Signs: Last Vital Signs Temp 97.8 F 04/24/21 08:01 Pulse 77 04/24/21 08:01 Resp 16 04/24/21 08:01 BP 129/82 04/24/21 08:01 Pulse Ox 95 04/24/21 08:01 Height: 6 ft Weight: 131.36 kg ASA Class: 3E Mental Status: Alert & Oriented x3 Dentition: Reports: Normal Dentition, Missing Tooth/Teeth Thyro-Mental Finger Breadths: 3 Mouth Opening Finger Breadths: 3 ROM/Head Extension: Full Lungs: Clear to Auscultation, Normal Respiratory Effort Cardiovascular: Regular Rate, Regular Rhythm - Lab Values: Laboratory Last Values WBC 9.74 K/uL (4.0-11.0) 04/24/21 05:46 RBC 4.21 M/uL (4.30-5.90) L 04/24/21 05:46 Hgb 9.2 g/dL (12.0-16.0) L 04/24/21 05:46 Hct 30.3 % (36.0-46.0) L 04/24/21 05:46 MCV 72.0 fL (80.0-98.0) L 04/24/21 05:46 MCH 21.9 pg (27.0-32.0) L 04/24/21 05:46 MCHC 30.4 g/dL (31.0-37.0) L 04/24/21 05:46 RDW Std Deviation 50.7 fl (28.0-62.0) 04/24/21 05:46 RDW Coeff of Ronni 19 % (11.0-15.0) H 04/24/21 05:46 Plt Count 604 K/uL (150-400) H 04/24/21 05:46 MPV 9.20 fL (7.40-12.00) 04/24/21 05:46 Neut % (Auto) 77.6 % (48.0-80.0) 04/23/21 09:55 Lymph % (Auto) 14.5 % (16.0-40.0) L 04/23/21 09:55 [place] % (Auto) 7.3 % (0.0-15.0) 04/23/21 09:55 Eos % (Auto) 0.4 % (0.0-7.0) 04/23/21 09:55 Baso % (Auto) 0.2 % (0.0-1.5) 04/23/21 09:55 Neut # (Auto) 8.4 K/uL (1.4-5.7) H 04/23/21 09:55 Lymph # (Auto) 1.6 K/uL (0.6-2.4) 04/23/21 09:55 [place] # (Auto) 0.8 K/uL (0.0-0.8) 04/23/21 09:55 Eos # (Auto) 0.0 K/uL (0.0-0.7) 04/23/21 09:55 Baso # (Auto) 0.0 K/uL (0.0-0.1) 04/23/21 09:55 Nucleated RBC % 0.0 /100WBC 04/24/21 05:46 Nucleated RBCs # 0 K/uL 04/24/21 05:46 Sodium 139 mmol/L (136-145) 04/24/21 05:46 Potassium 4.1 mmol/L (3.5-5.1) 04/24/21 05:46 Chloride 104 mmol/L (98-107) 04/24/21 05:46 Carbon Dioxide 27.1 mmol/L (21.0-32.0) 04/24/21 05:46 BUN 4 mg/dL (7.0-18.0) L 04/24/21 05:46 Creatinine 1.0 mg/dL (0.6-1.0) 04/24/21 05:46 Est Cr Clr Drug Dosing 88.89 mL/min 04/24/21 05:46 Estimated GFR (MDRD) > 60.0 ml/min 04/24/21 05:46 Glucose 91 mg/dL (74-106) 04/24/21 05:46 Calcium 8.7 mg/dL (8.5-10.1) 04/24/21 05:46 Total Bilirubin 0.5 mg/dL (0.2-1.0) 04/24/21 05:46 AST 116 IU/L (15-37) H 04/24/21 05:46 ALT 167 IU/L (14-63) H 04/24/21 05:46 Alkaline Phosphatase 89 U/L (46-116) 04/24/21 05:46 Total Protein 6.6 g/dL (6.4-8.2) 04/24/21 05:46 Albumin 2.7 g/dL (3.4-5.0) L 04/24/21 05:46 Globulin 3.9 g/dL (2.6-4.0) 04/24/21 05:46 Albumin/Globulin Ratio 0.7 (0.9-1.6) L 04/24/21 05:46 Lipase 107 U/L (73-393) 04/23/21 09:55 HCG, Qual NEGATIVE (NEG) 04/24/21 05:46 Urine Color YELLOW 04/23/21 11:15 Urine Appearance CLEAR 04/23/21 11:15 Urine pH 6.5 (5.0-8.0) 04/23/21 11:15 Ur Specific [place] 1.020 (1.001-1.035) 04/23/21 11:15 Urine Protein NEGATIVE mg/dL (NEGATIVE) 04/23/21 11:15 Urine Glucose (UA) NEGATIVE mg/dL (NEGATIVE) 04/23/21 11:15 Urine Ketones NEGATIVE mg/dL (NEGATIVE) 04/23/21 11:15 Urine Occult Blood NEGATIVE (NEGATIVE) 04/23/21 11:15 Urine Nitrite NEGATIVE (NEGATIVE) 04/23/21 11:15 Urine Bilirubin NEGATIVE (NEGATIVE) 04/23/21 11:15 Urine Urobilinogen 2.0 EU/dL (<2.0) H 04/23/21 11:15 Ur Leukocyte Esterase NEGATIVE (NEGATIVE) 04/23/21 11:15 Blood Type O POSITIVE 04/23/21 14:50 Antibody Screen NEGATIVE 04/23/21 14:50 - Allergies Allergies/Adverse Reactions: Allergies Allergy/AdvReac Type Severity Reaction Status Date / Time shellfish derived Allergy Anaphylactic Verified 04/23/21 09:38 Shock sulfur dioxide Allergy Cannot Verified 04/23/21 09:38 Remember - Acknowledgements Anesthesia Type Planned: General Anesthesia Pt an Appropriate Candidate for the Planned Anesthesia: Yes Alternatives and Risks of Anesthesia Discussed w Pt/Guardian: Yes Pt/Guardian Understands and Agrees with Anesthesia Plan: Yes PreAnesthesia Questionnaire - Past Health History Medical/Surgical History: Denies Medical/Surgical History Respiratory History: Reports: Asthma, Other (See Below) (recent COVID infection) Gastrointestinal History: Reports: Other (See Below) (Umbilical hernia) 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: Reports: 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 Psychiatric History: Reports: Bipolar Hematologic History: Reports: Anemia - Infectious Disease History Infectious Disease History: Reports: Novel Coronavirus - Past Surgical History HEENT Surgical History: Reports: None Cardiovascular Surgical History: Reports: None Respiratory Surgical History: Reports: None GI Surgical History: Reports: Hernia, Abdominal Female Surgical History: Reports: Tubal Ligation Endocrine Surgical History: Reports: None - SUBSTANCE USE Tobacco Use Status *Q: Current Every Day Tobacco User Tobacco Use Within Last Twelve Months: Vaping Recreational Drug Use History: No - HOME MEDS Home Medications: Home Meds norgestimate-ethinyl estradioL [Vnl-Ic-Mdxomzef Tablet] 1 tab PO DAILY 04/23/21 [History] - CURRENT (IN HOUSE) MEDS Current Meds: Current Medications Diphenhydramine HCl (Diphenhydramine 50 Mg/Ml Sdv) 25 mg IVPUSH Q4H PRN PRN Reason: Itching Hydromorphone HCl (Hydromorphone 1 Mg/Ml Syringe) 0.5 mg IVPUSH Q1H PRN PRN Reason: Pain (severe 7-10) Lactated Ringer's (Ringers, Lactated) 1,000 mls @ 125 mls/hr IV ASDIRECTED [facility] Last Admin: 04/24/21 03:22 Dose: 125 mls/hr Documented by: Piperacillin Sod/Tazobactam (Sod 3.375 gm/ Sodium Chloride) 50 mls @ 100 mls/hr IV Q6H [facility] Last Admin: 04/24/21 08:44 Dose: 100 mls/hr Documented by: Ondansetron HCl (Ondansetron 4 Mg/2 Ml Sdv) 4 mg IVPUSH Q6H PRN PRN Reason: Nausea/Vomiting Oxycodone/Acetaminophen (Acetaminophen/Oxycodone 325-5 Mg Tab) 2 tab PO Q4H PRN PRN Reason: Pain (moderate 4-6) Sodium Chloride (Sodium Chloride 0.9% 10 Ml Syringe) 10 ml FLUSH ASDIRECTED PRN PRN Reason: Keep Vein Open Sodium Chloride (Sodium Chloride 0.9% 2.5 Ml Syringe) 2.5 ml FLUSH ASDIRECTED PRN PRN Reason: Keep Vein Open Sodium Chloride (Sodium Chloride 0.9% 10 Ml Sdv) 10 ml IV ASDIRECTED PRN PRN Reason: IV Use Discontinued Medications Bupivacaine HCl (Bupivacaine 0.5% 30 Ml Sdv) Confirm Administered Dose 30 ml .ROUTE .STK-MED ONE Stop: 04/24/21 08:33 Fentanyl (Fentanyl 100 Mcg/2 Ml Sdv) Confirm Administered Dose 100 mcg .ROUTE .STK-MED ONE Stop: 04/24/21 08:47 Sodium Chloride (Normal Saline) 1,000 mls @ 999 mls/hr IV .Bolus ONE Stop: 04/23/21 10:55 Last Admin: 04/23/21 09:55 Dose: 999 mls/hr Documented by: Piperacillin Sod/Tazobactam (Sod 4.5 gm/ Sodium Chloride) 100 mls @ 100 mls/hr IV ONETIME ONE Stop: 04/23/21 14:27 Last Admin: 04/23/21 14:04 Dose: 100 mls/hr Documented by: Acetaminophen (Ofirmev 1000 Mg/100 Ml) Confirm Administered Dose 100 mls @ as directed .ROUTE .STK-MED ONE Stop: 04/24/21 08:46 Indocyanine Green (Indocyanine Green 25 Mg Sdv) Confirm Administered Dose 25 mg .ROUTE .STK-MED ONE Stop: 04/24/21 09:04 Ketorolac Tromethamine (Ketorolac 15 Mg/Ml Sdv) Confirm Administered Dose 15 mg .ROUTE .STK-MED ONE Stop: 04/23/21 10:13 Last Admin: 04/23/21 10:51 Dose: Not Given Documented by: Ketorolac Tromethamine (Ketorolac 30 Mg/Ml Sdv) 15 mg IVPUSH ONETIME ONE Stop: 04/23/21 10:18 Last Admin: 04/23/21 11:04 Dose: Not Given Documented by: Ketorolac Tromethamine (Ketorolac 15 Mg/Ml Sdv) 15 mg IVPUSH ONETIME STA Stop: 04/23/21 10:18 Last Admin: 04/23/21 10:17 Dose: 15 mg Documented by: Lidocaine (Lidocaine 2% 5 Ml Sdv) Confirm Administered Dose 5 ml .ROUTE .[facility] ONE Stop: 04/24/21 08:46 Midazolam HCl (Midazolam 1 Mg/Ml 2 Ml Sdv) Confirm Administered Dose 2 mg .ROUTE .[facility] ONE Stop: 04/24/21 08:47 Octyl Cyanoacrylate (Octyl 2-Cyanoacrylate 1 Tube) Confirm Administered Dose 1 applic .ROUTE .[facility] ONE Stop: 04/24/21 08:33 Ondansetron HCl (Ondansetron 4 Mg/2 Ml Sdv) Confirm Administered Dose 4 mg .ROUTE .[facility] ONE Stop: 04/23/21 10:13 Last Admin: 04/23/21 10:52 Dose: Not Given Documented by: Ondansetron HCl (Ondansetron 4 Mg/2 Ml Sdv) 4 mg IVPUSH ONETIME ONE Stop: 04/23/21 10:50 Last Admin: 04/23/21 11:03 Dose: 4 mg Documented by: Ondansetron HCl (Ondansetron 4 Mg/2 Ml Sdv) Confirm Administered Dose 4 mg .ROUTE .[facility] ONE Stop: 04/24/21 08:46 Propofol (Propofol 200 Mg/20 Ml Sdv) Confirm Administered Dose 200 mg .ROUTE . [facility] ONE Stop: 04/24/21 08:46 Rocuronium Hawkins (Rocuronium Hawkins 50 Mg/5 Ml Syringe) Confirm Administered Dose 50 mg .ROUTE .[facility]-MED ONE Stop: 04/24/21 08:46 Succinylcholine Chloride (Succinylcholine Chloride 200 Mg/10 Ml Syr) Confirm Administered Dose 200 mg .ROUTE .[facility] ONE Stop: 04/24/21 08:46 Sugammadex Sodium (Sugammadex Sodium 200 Mg/2 Ml Vial) Confirm Administered Dose 200 mg .ROUTE .[facility] ONE Stop: 04/24/21 08:46
--- NOTE | 2021-04-24 09:49 | PCM48HPAN ---
Post Anesthesia Note - EVALUATION WITHIN 48HRS OF ANESTHETIC Vital Signs in Normal Range: Yes Patient Participated in Evaluation: Yes Respiratory Function Stable: Yes Airway Patent: Yes Cardiovascular Function Stable: Yes Hydration Status Stable: Yes Pain Control Satisfactory: Yes Nausea and Vomiting Control Satisfactory: Yes Mental Status Recovered: Yes Vital Signs: Last Vital Signs Temp 97.8 F 04/24/21 Pulse 77 04/24/21 Resp 16 04/24/21 BP 129/82 04/24/21 Pulse Ox 95 04/24/21
[2021-04-24] MEDS ORDERED: Ketorolac 30 MG/ML SDV ONE (11:04)
--- NOTE | 2021-04-24 11:34 | PCM.OPNOTE ---
- General Post-Op/Procedure Note Date of Surgery/Procedure: 04/24/21 Operative Procedure(s): Laparoscopic cholecystectectomy, lysis of adhesions and umbilical hernia repair Findings: 2.5 cm umbilical hernia along the supraumbilical midline. Adhesions of omentum to the upper midline and hernia sac. Simple appearing ovarian cyst on left ovary. Inflamed and distended gallbladder. Pre Op Diagnosis: Acute cholecystitis, left adenexal cyst, umbilical hernia Post-Op Diagnosis: Acute cholecystitis, left ovarian cyst, umbilical hernia, intra-abdominal adhesions Anesthesia Technique: General ET Tube Primary Surgeon: Jennifer Snowden Fluid Replacement, Intraop: 800 Output, Urine Amount: 700 EBL in mLs: 10 Condition: Good Free Text/Narrative:: Intake & Output 04/23/21 04/24/21 04/24/21 22:59 06:59 14:59 Intake Total 50 1889 Output Total 1200 Balance 50 689
[2021-04-24] MEDS: Acetaminophen/oxyCODONE 325-5 MG Tab PO PRN ×2 (14:00→21:16)
--- NOTE | 2021-04-24 14:27 | OR ---
SURGEON: GABRIEL CASE MD DATE OF PROCEDURE: 04/24/2021 PREOPERATIVE DIAGNOSES: 1. Acute cholecystitis. 2. Umbilical hernia. 3. Left adnexal cyst. POSTOPERATIVE DIAGNOSES: 1. Acute cholecystitis. 2. Umbilical hernia. 3. Left ovarian cyst. 4. Intra-abdominal adhesions. PROCEDURES PERFORMED: 1. Laparoscopic cholecystectomy. 2. Umbilical hernia repair. 3. Lysis of intra-abdominal adhesions. ANESTHESIA: General endotracheal anesthesia. FLUIDS: 800 mL of crystalloid. ESTIMATED BLOOD LOSS: 10 mL. URINE OUTPUT: 700 mL. FINDINGS: 2.5 cm umbilical hernia along the supraumbilical midline. Adhesions of the omentum to the upper midline and hernia sac. Simple-appearing ovarian cyst on left ovary, inflamed and distended gallbladder. COMPLICATIONS: None. INDICATIONS: The patient is a 36-year-old female who presented to the emergency room yesterday with an acute onset of right upper quadrant pain. Workup revealed cholelithiasis and signs of acute cholecystitis. Incidentally on her CT scan, she was found to have an umbilical hernia. She had an umbilical hernia repair as an . The patient was also noted to have a 7 x 5 cm left adnexal cyst. The patient was admitted to the hospital. She was resuscitated and given IV antibiotics. The next day or today, her pain was well controlled, however, given the acute nature of her cholecystitis, I recommended she undergo a laparoscopic cholecystectomy. The patient and I discussed the procedure, expected perioperative course, and risks. For further details, please see the patient's H and P. Given that one my port site to be by her umbilical hernia, we elected to repair this at the same time. I would not perform this with mesh given the acute nature of the inflammation. We would also take pictures of the left adnexal cyst. I had reviewed the CT images and this appeared to be an ovarian cyst. 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 She was typed and screened due to anemia secondary to menorrhagia. After long discussions, the patient verbalized understanding and wished to proceed. PROCEDURE IN DETAIL: The patient was brought in to the OR and placed on the OR table in supine position. A time-out was completed verifying the patient's name, age, date of , allergies, and procedure to be performed. General endotracheal anesthesia was induced. The left arm was tucked to the patient's side and a Blood catheter placed. The abdomen was prepped and draped in the usual standard fashion. I palpated the umbilical hernia. It appeared to be along the supraumbilical midline. I anesthetized this area with 0.5% Marcaine plain. A 15 blade was used to make an incision just to the right of the supraumbilical midline and carried up along the supraumbilical midline. Cautery was then used to dissect into the subcutaneous fat layer. I immediately encountered a hernia sac. I entered this sharply with the Metzenbaum scissors. I then extended it both superiorly and inferiorly. There were omental adhesions inside the hernia sac itself. These were taken down sharply using Metzenbaum scissors. I was able to clear away the omentum in the hernia sac and then began clearing away the omental adhesions to the underlying healthy fascia. I encountered an old Ethibond suture. When I had cleared away enough of these adhesions, a 12 mm Gabriel trocar was introduced into the area. I partially closed my hernia sac so that the 12 mm Gabriel trocar would remain in place throughout the case. The abdomen was insufflated. I tried to insert my camera through this port site, but there were still some adhesions that block to my view. The decision was made to port into the right upper quadrant as of the unlikely that there will be adhesions there and used that port to better visualize the umbilical midline and assess for any other intra-abdominal adhesions. Using a 5 mm optical trocar, I gained entry into the right upper quadrant through an incision made two fingerbreadths below the left subcostal margin in the midclavicular line. A 5 mm, 30-degree scope was inserted. I saw that the patient had omental adhesions along the upper midline and around the umbilicus. I was able to go under these in order to visualize the right upper quadrant. I placed my right lateral flank 5 mm port under direct visualization. I then placed my subcostal port under direct visualization as well. I was then able to get better visualization of the left side of the abdomen. I was then able to advance my 12 mm Gabriel trocar through the adhesions to allow visualization. The camera was then placed through the supraumbilical port site. The patient was then placed into reverse Trendelenburg position. I attempted to use my left upper quadrant port as a substitute for my epigastric port site. However, this was somewhat difficult and the decision was made to place the epigastric port instead. A 5 mm port was placed in the epigastric area. I grasped the dome of the gallbladder and elevated it cranially. There were some omental adhesions to the gallbladder wall itself. These were taken down using hook cautery and blunt dissection. I then grasped the infundibulum. Using a combination of blunt dissection and hook cautery, I took down the adhesions around the cystic duct and artery. Indocyanine green had been given beforehand. Using this I was able to identify the cystic duct. I then cleared away my proximal cystic plate 1[address] Once my critical view was achieved, a photograph was taken. I doubly clipped and ligated my cystic duct and artery. The remainder of the attachments of the gallbladder to the cystic plate were taken down with hook cautery. A small rent was made in the gallbladder during this process and a scant amount of bile was spilled into the abdomen. Once the gallbladder was removed from the cystic plate, it was placed in an EndoCatch bag and removed through the supraumbilical port site. Before replacing my trocar, I bluntly flipped down all the adhesions of the omentum to the underside of the abdominal wall to allow for my umbilical hernia repair. The 12 mm trocar was then replaced and I inspected my operative field. The area was irrigated with normal saline, which was then suctioned out. A photograph was taken of the operative field. It was hemostatic and there was no evidence of bile leakage. I turned my attention to the pelvis. I noted a large simple appearing cyst on the left ovary. Several photographs of this were taken. My 5 mm trocars were then removed under direct visualization. The abdomen allowed to desufflate. I removed my 12 mm Gabriel trocar. I then turned my attention to the umbilical hernia. The patient had a 2.5 cm hernia defect along the supraumbilical midline. I closed this with interrupted 0 Ethibond sutures. Once the fascial defect was closed, a Valsalva maneuver was performed. The repair appeared to be intact. I then closed the subcutaneous fat layer with interrupted 3-0 Vicryl sutures. The skin was closed with a running 4-0 Monocryl stitch. My 5 mm trocar sites were closed with interrupted 4-0 Monocryl sutures. Dermabond and sterile dressings were applied. The patient tolerated the procedure well, was transferred to the PACU in stable condition. All counts were complete correct at the end of the case. CONNIE MARIE /[id number] MTDJessica
[2021-04-25 06:33] LABS: BLOOD UREA NITROGEN,BUN 6 mg/dL (7.0-18.0); CARBON DIOXIDE,CO2 28.1 mmol/L (21.0-32.0); CHLORIDE,CL 104 mmol/L (98-107); GLUCOSE RANDOM 95 mg/dL (74-106); POTASSIUM,K 3.8 mmol/L (3.5-5.1); SODIUM,NA 140 mmol/L (136-145)
--- NOTE | 2021-04-25 11:27 | PCM.DCSUM1 ---
Discharge Summary - Hospital Course Free Text/Narrative:: Patient is a 36 year old female who presented to emergency room right upper quadrant pain. She had a CT scan which was equivocal. She underwent an ultrasound which showed gallstones and signs of early acute cholecystitis. CT scan also showed a 7 cm left adnexal cyst. She also had an umbilical hernia. She has a history of anemia due to dysfunctional uterine bleeding. She was typed and screened. She was admitted to the hospital. I consented her for an umbilical hernia repaired and laparoscopic possible open cholecystectomy. The case was uncomplicated. The gallbladder was removed and her hernia repaired without mesh. Intraoperatively I took pictures of what appeared to be a large ovarian cyst on the left side. Postoperatively her pain was well controlled. She is able to advance her diet without difficulty. Her vital signs remained stable. This morning she has soreness around her umbilical incision. She also complains of some epigastric discomfort. Her hemoglobin is stable. Her AST and ALT are mildly elevated but not higher which is to be expected after surgery. Her bilirubin is 2.4 this morning up from 0.5. This elevation may be due to biliary spasm vs a reservoir effect from removal of the gallbladder or a small stone that was manipulated into the common bile duct. I visited with one of my partners and we agreed that as long as the patient is comfortable this morning she can be discharged home with repeat labs in one week or sooner should she start to develop worsening abdominal pain or signs of jaundice. The patient was comfortable with this and agrees. - Discharge Data Discharge Date: 04/25/21 Discharge Disposition: Home, Self-Care 01 Condition: Good - Referral to Home Health Primary Care Physician: PCP None - Discharge Diagnosis/Problem(s) (1) Acute cholecystitis SNOMED Code(s): 38036448 ICD Code: K81.0 - ACUTE CHOLECYSTITIS Status: Acute Current Visit: Yes (2) Intra-abdominal adhesions SNOMED Code(s): 677741851 ICD Code: K66.0 - PERITONEAL ADHESIONS (POSTPROCEDURAL) (POSTINFECTION) Status: Acute Current Visit: Yes (3) Ovarian cyst SNOMED Code(s): 25573958 ICD Code: N83.209 - UNSPECIFIED OVARIAN CYST, UNSPECIFIED SIDE Status: Acute Current Visit: Yes (4) Umbilical hernia SNOMED Code(s): 804228036 ICD Code: K42.9 - UMBILICAL HERNIA WITHOUT OBSTRUCTION OR GANGRENE Status: Acute Current Visit: Yes (5) Chronic anemia SNOMED Code(s): 603346673 ICD Code: D64.9 - ANEMIA, UNSPECIFIED Status: Acute Current Visit: Yes - Patient Summary/Data Operative Procedure(s) Performed: Laparoscopic cholecystectectomy, lysis of adhesions and umbilical hernia repair - Patient Instructions Diet: Regular Diet as Tolerated, Drink 8-10+ Glasses/Day Diet, Other: Low fat diet Activity: No Lifting Over 20 Pounds (for six weeks ), Rest and Relax Today Driving: Do Not Drive (for one week ) Showering/Bathing: No Showering (until tomorrow ), No Tub Bathing/Swimming (for 2 weeks ) Wound/Incision Care: Keep Operative Site/Wound Site Clean and Dry Notify Provider of: Fever, Increased Pain, Swelling and Redness, Drainage, Nausea and/or Vomiting - Discharge Plan *PRESCRIPTION DRUG MONITORING PROGRAM REVIEWED*: Yes *COPY OF PRESCRIPTION DRUG MONITORING REPORT IN PATIENT REGGIE: Yes Home Medications: Home Meds norgestimate-ethinyl estradioL [Soj-Fa-Gvcwbomx Tablet] 1 tab PO DAILY 04/23/21 [History] Patient Handouts: Minimally Invasive Cholecystectomy, Care After, [id number], Open Hernia Repair, Adult, Care After Referrals: Jennifer Chang MD [Physician] - 05/04/21 1:45 pm Jennifer Snowden MD [Physician] - 05/02/21 3:00 pm - Discharge Summary/Plan Comment DC Time >30 min.: No Total # of Minutes for Discharge Time: 25 - General Info Functional Status: Reports: Pain Controlled, Tolerating Diet, Ambulating, Urinating - Review of Systems General: Reports: No Symptoms HEENT: Reports: No Symptoms Pulmonary: Reports: No Symptoms Cardiovascular: Reports: No Symptoms Gastrointestinal: Reports: Abdominal Pain (along incisions). Denies: Nausea, Vomiting Genitourinary: Reports: No Symptoms Musculoskeletal: Reports: No Symptoms - Patient Data Vitals - Most Recent: Last Vital Signs Temp 36.4 C 04/25/21 08:00 Pulse 71 04/25/21 08:00 Resp 16 04/25/21 08:00 BP 137/80 04/25/21 08:00 Pulse Ox 96 04/25/21 08:00 Weight - Most Recent: 131.36 kg I&O - Last 24 hours: Intake & Output 04/24/21 04/25/21 04/25/21 22:59 06:59 14:59 Intake Total 1290 500 Output Total 1400 1100 Balance -110 -600 Lab Results - Last 24 hrs: Laboratory Results - last 24 hr 04/25/21 04/25/21 Range/Units 05:15 05:15 WBC 9.58 (4.0-11.0) K/uL RBC 4.20 L (4.30-5.90) M/uL Hgb 9.1 L (12.0-16.0) g/dL Hct 30.3 L (36.0-46.0) % MCV 72.1 L (80.0-98.0) fL MCH 21.7 L (27.0-32.0) pg MCHC 30.0 L (31.0-37.0) g/dL RDW Std Deviation 50.9 (28.0-62.0) fl RDW Coeff of Ronni 19 H (11.0-15.0) % Plt Count 624 H (150-400) K/uL MPV 9.60 (7.40-12.00) fL Nucleated RBC % 0.0 /100WBC Nucleated RBCs # 0 K/uL Sodium 140 (136-145) mmol/L Potassium 3.8 (3.5-5.1) mmol/L Chloride 104 (98-107) mmol/L Carbon Dioxide 28.1 (21.0-32.0) mmol/L BUN 6 L (7.0-18.0) mg/dL Creatinine 1.0 (0.6-1.0) mg/dL Est Cr Clr Drug Dosing 88.89 mL/min Estimated GFR (MDRD) > 60.0 ml/min Glucose 95 (74-106) mg/dL Calcium 8.0 L (8.5-10.1) mg/dL Total Bilirubin 2.4 H (0.2-1.0) mg/dL AST 102 H (15-37) IU/L ALT 158 H (14-63) IU/L Alkaline Phosphatase 116 (46-116) U/L Total Protein 6.5 (6.4-8.2) g/dL Albumin 2.6 L (3.4-5.0) g/dL Globulin 3.9 (2.6-4.0) g/dL Albumin/Globulin Ratio 0.7 L (0.9-1.6) Med Orders - Current: Current Medications Diphenhydramine HCl (Diphenhydramine 50 Mg/Ml Sdv) 25 mg IVPUSH Q4H PRN PRN Reason: Itching Hydromorphone HCl (Hydromorphone 1 Mg/Ml Syringe) 0.5 mg IVPUSH Q1H PRN PRN Reason: Pain (severe 7-10) Ondansetron HCl (Ondansetron 4 Mg/2 Ml Sdv) 4 mg IVPUSH Q6H PRN PRN Reason: Nausea/Vomiting Last Admin: 04/24/21 14:00 Dose: 4 mg Documented by: Oxycodone/Acetaminophen (Acetaminophen/Oxycodone 325-5 Mg Tab) 2 tab PO Q4H PRN PRN Reason: Pain (moderate 4-6) Last Admin: 04/24/21 21:16 Dose: 2 tab Documented by: Sodium Chloride (Sodium Chloride 0.9% 10 Ml Syringe) 10 ml FLUSH ASDIRECTED PRN PRN Reason: Keep Vein Open Sodium Chloride (Sodium Chloride 0.9% 2.5 Ml Syringe) 2.5 ml FLUSH ASDIRECTED PRN PRN Reason: Keep Vein Open Sodium Chloride (Sodium Chloride 0.9% 10 Ml Sdv) 10 ml IV ASDIRECTED PRN PRN Reason: IV Use Discontinued Medications Albuterol (Albuterol 0.083% 2.5 Mg/3 Ml Neb Soln) 2.5 mg NEB ONETIME PRN PRN Reason: Wheezing Bupivacaine HCl (Bupivacaine 0.5% 30 Ml Sdv) Confirm Administered Dose 30 ml .ROUTE .STK-MED ONE Stop: 04/24/21 08:33 Droperidol (Droperidol 5 Mg/2 Ml Sdv) 0.625 mg IVPUSH ONETIME PRN PRN Reason: Nausea/Vomiting Fentanyl (Fentanyl 100 Mcg/2 Ml Sdv) Confirm Administered Dose 100 mcg .ROUTE .STK-MED ONE Stop: 04/24/21 08:47 Fentanyl (Fentanyl 100 Mcg/2 Ml Sdv) 50 mcg IVPUSH Q5M PRN PRN Reason: Pain (mild 1-3) Fentanyl (Fentanyl 100 Mcg/2 Ml Sdv) Confirm Administered Dose 100 mcg .ROUTE .STK-MED ONE Stop: 04/24/21 09:57 Fentanyl (Fentanyl 100 Mcg/2 Ml Sdv) Confirm Administered Dose 100 mcg .ROUTE .STK-MED ONE Stop: 04/24/21 11:17 Hydromorphone HCl (Hydromorphone 1 Mg/Ml Syringe) 1 mg IVPUSH Q10M PRN PRN Reason: Pain (moderate 4-6) Sodium Chloride (Normal Saline) 1,000 mls @ 999 mls/hr IV .Bolus ONE Stop: 04/23/21 10:55 Last Admin: 04/23/21 09:55 Dose: 999 mls/hr Documented by: Piperacillin Sod/Tazobactam (Sod 4.5 gm/ Sodium Chloride) 100 mls @ 100 mls/hr IV ONETIME ONE Stop: 04/23/21 14:27 Last Admin: 04/23/21 14:04 Dose: 100 mls/hr Documented by: Lactated Ringer's (Ringers, Lactated) 1,000 mls @ 125 mls/hr IV ASDIRECTED [facility] Last Admin: 04/24/21 03:22 Dose: 125 mls/hr Documented by: Piperacillin Sod/Tazobactam (Sod 3.375 gm/ Sodium Chloride) 50 mls @ 100 mls/hr IV Q6H [facility] Last Admin: 04/24/21 08:44 Dose: 100 mls/hr Documented by: Acetaminophen (Ofirmev 1000 Mg/100 Ml) Confirm Administered Dose 100 mls @ as directed .ROUTE .STK-MED ONE Stop: 04/24/21 08:46 Indocyanine Green (Indocyanine Green 25 Mg Sdv) Confirm Administered Dose 25 mg .ROUTE .STK-MED ONE Stop: 04/24/21 09:04 Ketorolac Tromethamine (Ketorolac 15 Mg/Ml Sdv) Confirm Administered Dose 15 mg .ROUTE .STK-MED ONE Stop: 04/23/21 10:13 Last Admin: 04/23/21 10:51 Dose: Not Given Documented by: Ketorolac Tromethamine (Ketorolac 30 Mg/Ml Sdv) 15 mg IVPUSH ONETIME ONE Stop: 04/23/21 10:18 Last Admin: 04/23/21 11:04 Dose: Not Given Documented by: Ketorolac Tromethamine (Ketorolac 15 Mg/Ml Sdv) 15 mg IVPUSH ONETIME STA Stop: 04/23/21 10:18 Last Admin: 04/23/21 10:17 Dose: 15 mg Documented by: Ketorolac Tromethamine (Ketorolac 30 Mg/Ml Sdv) Confirm Administered Dose 30 mg .ROUTE .STK-MED ONE Stop: 04/24/21 11:05 Lidocaine (Lidocaine 2% 5 Ml Sdv) Confirm Administered Dose 5 ml .ROUTE .STK-MED ONE Stop: 04/24/21 08:46 Metoclopramide HCl (Metoclopramide 10 Mg/2 Ml Sdv) 10 mg IVPUSH ONETIME PRN PRN Reason: Nausea/Vomiting Midazolam HCl (Midazolam 1 Mg/Ml 2 Ml Sdv) Confirm Administered Dose 2 mg .ROUTE .STK-MED ONE Stop: 04/24/21 08:47 Morphine Sulfate (Morphine 2 Mg/Ml Syringe) 2 mg IVPUSH Q10M PRN PRN Reason: Pain (severe 7-10) Naloxone HCl (Naloxone 0.4 Mg/Ml Sdv) 0.1 mg IVPUSH ASDIRECTED PRN PRN Reason: Respiratory Depression Octyl Cyanoacrylate (Octyl 2-Cyanoacrylate 1 Tube) Confirm Administered Dose 1 applic .ROUTE .STDeskActive-MED ONE Stop: 04/24/21 08:33 Ondansetron HCl (Ondansetron 4 Mg/2 Ml Sdv) Confirm Administered Dose 4 mg .ROUTE .STDeskActive-MED ONE Stop: 04/23/21 10:13 Last Admin: 04/23/21 10:52 Dose: Not Given Documented by: Ondansetron HCl (Ondansetron 4 Mg/2 Ml Sdv) 4 mg IVPUSH ONETIME ONE Stop: 04/23/21 10:50 Last Admin: 04/23/21 11:03 Dose: 4 mg Documented by: Ondansetron HCl (Ondansetron 4 Mg/2 Ml Sdv) Confirm Administered Dose 4 mg .ROUTE .STK-MED ONE Stop: 04/24/21 08:46 Ondansetron HCl (Ondansetron 4 Mg/2 Ml Sdv) 4 mg IVPUSH ONETIME PRN PRN Reason: Nausea/Vomiting Propofol (Propofol 200 Mg/20 Ml Sdv) Confirm Administered Dose 200 mg .ROUTE .STK-MED ONE Stop: 04/24/21 08:46 Rocuronium [place] (Rocuronium [place] 50 Mg/5 Ml Syringe) Confirm Administered Dose 50 mg .ROUTE .STK-MED ONE Stop: 04/24/21 08:46 Succinylcholine Chloride (Succinylcholine Chloride 200 Mg/10 Ml Syr) Confirm Administered Dose 200 mg .ROUTE .STK-MED ONE Stop: 04/24/21 08:46 Sugammadex Sodium (Sugammadex Sodium 200 Mg/2 Ml Vial) Confirm Administered Dose 200 mg .ROUTE .STK-MED ONE Stop: 04/24/21 08:46 - Exam Quality Assessment: Reports: Supplemental Oxygen General: Reports: Alert, Oriented HEENT: Reports: Pupils Equal, Pupils Reactive, Mucous Membr. Moist/[place] Neck: Reports: Supple Lungs: Reports: Normal Respiratory Effort Cardiovascular: Reports: Regular Rate GI/Abdominal Exam: Soft, Non-Tender, No Distention, No Mass Extremities: Normal Inspection Skin: Reports: Warm, Dry, Intact Wound/Incisions: Reports: Dressing Dry and Intact
== END 2021-04-25 12:35 | disposition home or self-care (01) ==
LOC: MW.ED 09:25 → MW.MS 14:00
PROVIDERS: ADMIT Surgery; ATTEND Surgery
DX: K80.12 Calculus of gallbladder with acute and chronic cholecystitis without obstruction (principal); K42.9 Umbilical hernia without obstruction or gangrene; K66.0 Peritoneal adhesions (postprocedural) (postinfection); N83.202 Unspecified ovarian cyst, left side; D64.9 Anemia, unspecified; F17.210 Nicotine dependence, cigarettes, uncomplicated; Z79.899 Other long term (current) drug therapy; Z88.2 Allergy status to sulfonamides; Z91.013 Allergy to seafood
CPT/HCPCS: 36415; 47562; 49585; 71045; 74176; 76705; 80053; 81003; 83690; 84703; 85025; 85027; 86850; 86900; 86901; 88304; 93005; 96365; 96375; 96376; 99285; A9270; G0378; J0131; J0330; J1885; J2250; J2405; J2543; J2704; J3010; J3490; J7030; J7120; 00790

== ENCOUNTER 2021-06-10 08:06 | Day surgery (SDC) | payer BC ==
--- NOTE | 2021-06-10 07:34 | PCM.PREANE ---
Preanesthetic Assessment - Anesthesia/Transfusion/Family Hx Anesthesia History: Prior Anesthesia Without Reaction Transfusion History: No Prior Transfusion(s) - Review of Systems General: No Symptoms Pulmonary: No Symptoms Cardiovascular: No Symptoms Gastrointestinal: No Symptoms Neurological: No Symptoms Other: Reports: None - Physical Assessment NPO Status Date: 06/10/21 NPO Status Time: 00:00 Height: 6 ft 1 in Weight: 228 lb ASA Class: 3 Mental Status: Alert & Oriented x3 Airway Class: Mallampati = 2 Dentition: Reports: Normal Dentition Thyro-Mental Finger Breadths: 3 Mouth Opening Finger Breadths: 3 ROM/Head Extension: Full Lungs: Clear to Auscultation, Normal Respiratory Effort Cardiovascular: Regular Rate, Regular Rhythm - Allergies Allergies/Adverse Reactions: Allergies Allergy/AdvReac Type Severity Reaction Status Date / Time chocolate flavor Allergy Hives Verified 06/06/21 09:11 shellfish derived Allergy Anaphylactic Verified 06/06/21 09:10 Shock Sulfa (Sulfonamide Allergy Cannot Verified 06/06/21 09:11 Antibiotics) Remember - Acknowledgements Anesthesia Type Planned: General Anesthesia Pt an Appropriate Candidate for the Planned Anesthesia: Yes Alternatives and Risks of Anesthesia Discussed w Pt/Guardian: Yes Pt/Guardian Understands and Agrees with Anesthesia Plan: Yes PreAnesthesia Questionnaire - Past Health History Medical/Surgical History: Denies Medical/Surgical History HEENT History: Reports: None Cardiovascular History: Reports: None Respiratory History: Reports: Asthma Other Respiratory History: "mild asthma" Gastrointestinal History: Reports: None Genitourinary History: Reports: Renal Calculus 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: 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, , Spontaneous Musculoskeletal History: Reports: None Neurological History: Reports: Migraines Psychiatric History: Reports: None, Bipolar Endocrine/Metabolic History: Reports: Obesity/BMI 30+ Hematologic History: Reports: Anemia Immunologic History: Reports: None Oncologic (Cancer) History: Reports: None Dermatologic History: Reports: None - Infectious Disease History Infectious Disease History: Reports: Novel Coronavirus - Past Surgical History Head Surgeries/Procedures: Reports: None HEENT Surgical History: Reports: None Cardiovascular Surgical History: Reports: None Respiratory Surgical History: Reports: None GI Surgical History: Reports: Cholecystectomy, Hernia, Abdominal Other GI Surgeries/Procedures: umbilical hernia as a baby, hx of cholecystectomy with umbilical hernia repair 04/19 Female Surgical History: Reports: Tubal Ligation Endocrine Surgical History: Reports: None Neurological Surgical History: Reports: None Musculoskeletal Surgical History: Reports: None Oncologic Surgical History: Reports: None Dermatological Surgical History: Reports: None - SUBSTANCE USE Tobacco Use Status *Q: Current Every Day Tobacco User Tobacco Use Within Last Twelve Months: Vaping - HOME MEDS Home Medications: Home Meds Albuterol Sulfate [Albuterol Sulfate Hfa] 1 - 2 puff INH ASDIRECTED PRN 06/06/21 [History] Multivitamin 1 tab PO DAILY 06/06/21 [History] Verapamil HCl [Verapamil ER Pm] 200 mg PO DAILY 06/06/21 [History] norgestimate-ethinyl estradioL [Sprintec 28 Day Tablet] 1 tab PO DAILY 06/06/21 [History]
[~2021-06-10 08:06] MED LIST: Albuterol 0.083% 2.5 MG/3 ML Neb Soln NEB PRN; Bupivacaine 0.25% 10 ML SDV ONE; Fluorescein 5 ML Vial ONE; HYDROmorphone 1 MG/ML Syringe IVPUSH PRN; Methylene Blue 50 MG/10 ML Ampule ONE; Metoclopramide 10 MG/2 ML SDV IVPUSH PRN; Morphine 2 MG/ML SYRINGE IVPUSH PRN; Naloxone 0.4 MG/ML SDV IVPUSH PRN; Ondansetron 4 MG/2 ML SDV IVPUSH PRN; Scopolamine 1.5 MG Transdermal Patch ONE; fentaNYL 100 MCG/2 ML SDV IVPUSH PRN
[2021-06-10] MEDS ORDERED: Rocuronium Bromide 50 MG/5 ML Syringe ONE (08:50)
[2021-06-10] MEDS ORDERED: fentaNYL 100 MCG/2 ML SDV ONE ×2 (08:50→10:43)
[2021-06-10] MEDS ORDERED: Propofol 200 MG/20 ML SDV ONE (08:50)
[2021-06-10] MEDS ORDERED: Ondansetron 4 MG/2 ML SDV ONE ×2 (08:51)
[2021-06-10] MEDS ORDERED: Sugammadex Sodium 200 MG/2 ML VIAL ONE (08:51)
[2021-06-10] MEDS: Lactated Ringers 1,000 ML IV SCH ×2 (08:59→13:00)
[2021-06-10 09:09] LABS: BLOOD UREA NITROGEN,BUN 17 mg/dL (7.0-18.0); CARBON DIOXIDE,CO2 28.4 mmol/L (21.0-32.0); CHLORIDE,CL 104 mmol/L (98-107); GLUCOSE RANDOM 100 mg/dL (74-106); POTASSIUM,K 3.7 mmol/L (3.5-5.1); SODIUM,NA 139 mmol/L (136-145)
[2021-06-10] MEDS ORDERED: Midazolam 1 MG/ML 2 ML SDV ONE (09:31)
[2021-06-10] MEDS ORDERED: Dexamethasone 4 MG/ML 5 ML MDV ONE (09:31)
[2021-06-10] MEDS ORDERED: HYDROmorphone 2 MG/ML Syringe ONE (10:31)
[2021-06-10] MEDS ORDERED: Ketorolac 30 MG/ML SDV ONE (12:25)
[2021-06-10] MEDS ORDERED: Ondansetron 4 MG/2 ML SDV IVPUSH PRN (12:31)
[2021-06-10] MEDS ORDERED: Morphine 4 MG/ML VIAL IVPUSH PRN (12:31)
[2021-06-10] MEDS ORDERED: Ketorolac 30 MG/ML SDV IVPUSH PRN (12:31)
[2021-06-10] MEDS ORDERED: Ketorolac 30 MG/ML SDV IVPUSH ONE (12:31)
[2021-06-10] MEDS ORDERED: Acetaminophen/oxyCODONE 325-5 MG Tab PO PRN ×2 (12:31)
[2021-06-10] MEDS ORDERED: Promethazine 25 MG/ML SDV IM PRN (12:31)
--- NOTE | 2021-06-10 12:38 | PCM.OPNOTE ---
- General Post-Op/Procedure Note Date of Surgery/Procedure: 06/10/21 Operative Procedure(s): Laparoscopic-assisted vaginal delivery, bilateral salpingectomy, left oophorectomy, cystoscopy, lysis of adhesions Findings: Small fibroid right lower uterine segment Uterus sound to 9cm Left ovarian cyst Moderate amount of omental adhesions to anterior abdominal wall Bilateral ureteral efflux Pre Op Diagnosis: Heavy menstrual bleeding. Left ovarian cyst Post-Op Diagnosis: Heavy menstrual bleeding. Left ovarian cyst. Uterine leiomyoma. Omental adhesions Anesthesia Technique: General ET Tube Primary Surgeon: Jennifer Chang Machine Shop Helper: Amaya Cisneros Pathology: Uterus, bilateral fallopian tubes, left ovary Fluid Replacement, Intraop: 1,800 Output, Urine Amount: 350 EBL in mLs: 900 Complications: None Condition: Good Free Text/Narrative:: 2g Ancef IV given prior to procedure
--- NOTE | 2021-06-10 12:47 | PCM.POSTAN ---
POST ANESTHESIA ASSESSMENT - MENTAL STATUS Mental Status: Alert, Oriented - VITAL SIGNS Vital Signs: Last Vital Signs Temp 36.3 C 06/10/21 08:39 Pulse 66 06/10/21 09:10 Resp 16 06/10/21 09:10 BP 135/79 06/10/21 09:10 Pulse Ox 99 06/10/21 08:39 - RESPIRATORY Respiratory Status: Respiratory Rate WNL, Airway Patent, O2 Saturation Stable - CARDIOVASCULAR CV Status: Pulse Rate WNL, Blood Pressure Stable - GASTROINTESTINAL GI Status: No Symptoms - POST OP HYDRATION Hydration Status: Adequate & Stable
--- NOTE | 2021-06-10 12:48 | PCM48HPAN ---
Post Anesthesia Note - EVALUATION WITHIN 48HRS OF ANESTHETIC Patient Participated in Evaluation: Yes Respiratory Function Stable: Yes Airway Patent: Yes Cardiovascular Function Stable: Yes Hydration Status Stable: Yes Pain Control Satisfactory: Yes Nausea and Vomiting Control Satisfactory: Yes Mental Status Recovered: Yes Vital Signs: Last Vital Signs Temp 36.3 C 06/10/21 08:39 Pulse 66 06/10/21 09:10 Resp 16 06/10/21 09:10 BP 135/79 06/10/21 09:10 Pulse Ox 99 06/10/21 08:39
[2021-06-10] MEDS ORDERED: Iron Sucrose Complex 300 MG in Sodium Chloride 0.9% 250 ML IV ONE (15:00)
--- NOTE | 2021-06-10 20:41 | OR ---
SURGEON: Jennifer Chang MD DATE OF PROCEDURE: 06/10/2021 PREOPERATIVE DIAGNOSES: 1. 36-year-old with heavy menstrual bleeding. 2. 6 cm left ovarian cyst. POSTOPERATIVE DIAGNOSES: 1. 36-year-old with heavy menstrual bleeding. 2. Left ovarian cyst. 3. Right lower uterine segment fibroid measuring 2 to 3 cm. 4. Omental adhesions to the anterior abdominal wall. PROCEDURES: Laparoscopic-assisted vaginal hysterectomy, bilateral salpingectomy, left oophorectomy, cystoscopy, lysis of adhesions. PRIMARY SURGEON: Jennifer Chang MD C DEVELOPER: Amaya Cisneros ANESTHESIA: General endotracheal. COMPLICATIONS: None. ESTIMATED BLOOD LOSS: 100 mL. IV FLUIDS: 1800 mL LR. URINE OUTPUT: 250 mL. SPECIMENS: Uterus, bilateral tubes, left ovary. ANTIBIOTIC PROPHYLAXIS: 2 g of Ancef IV. PROCEDURE IN DETAIL: The patient was taken to the operating room where general anesthesia was obtained without difficulty. She was placed in dorsal lithotomy position with legs in Yellofins stirrups. She was prepared and draped in normal sterile fashion, and a Blood catheter was inserted. A Graves speculum was inserted into the vagina. The cervix was sounded to 8 cm. The anterior lip of the cervix was grasped with a single-tooth tenaculum. The HUMI uterine manipulator was introduced. The tenaculum and speculum were removed from the vagina. The surgeon's gloves were changed. After ensuring an orogastric tube was inserted by Anesthesia, the patient's previous left upper quadrant incision was reopened with a scalpel after infiltration with 0.25% bupivacaine. A 5 mm trocar was inserted into the abdomen under direct laparoscopic visualization. Pneumoperitoneum was established with carbon dioxide gas. An intraabdominal survey revealed a moderate amount of omental adhesions to the anterior abdominal wall, likely due to recent umbilical hernia repair. Two 5 mm trocars were inserted into the bilateral lower quadrants under direct laparoscopic visualization. The LigaSure device was used to lyse the omental adhesions to anterior abdominal wall after ensuring that no bowel was entrapped. At this time, Trendelenburg position was obtained to facilitate moving the bowel out of the pelvis. The pelvic anatomy revealed a 2 to 3 cm lower uterine segment fibroid along with grossly normal-appearing fallopian tubes and ovaries. A small cyst was noted on the left ovary. Bilateral ureteral peristalsis was noted. The uterus was retracted from the pelvis with the uterine manipulator. The left ovary was retracted anteriorly using an atraumatic grasper to mobilize the infundibulopelvic ligament away from the sidewall. The IP ligament was clamped, coagulated, and transected with a 5 mm LigaSure device. The round and broad ligaments were sequentially transected with the LigaSure device until the uterine artery was exposed. The bladder flap was created using LigaSure device. The uterine artery was clamped, coagulated, and transected with the LigaSure device and hemostasis was noted. The right fallopian tube was then retracted using an atraumatic grasper and the right fimbriae were along with the mesosalpinx and the ovary. This was removed through one of the trocars. The remainder of the fallopian tube was transected along with the mesosalpinx using the LigaSure device. The round and broad ligaments were sequentially transected with the LigaSure device and the uterine artery was clamped and coagulated. Due to difficult visualization from the lower uterine segment fibroid and left upper quadrant port for the camera, laparoscopic resections were completed at this point. The pneumoperitoneum was released. The patient was repositioned in dorsal lithotomy position with the hips flexed somewhat and thighs slightly abducted. The uterine manipulator was removed. The cervix was grasped with a Cony tenaculum. A circumferential incision around the cervix was made with the Bovie. Blunt and sharp dissection was performed along the appropriate plane. The posterior cul-de-sac was entered sharply with Francisco scissors and bloody peritoneal fluid was noted. The anterior cul-de-sac was then entered with no difficulty using Metzenbaum scissors. The uterosacral ligament was clamped, transected, and suture-ligated bilaterally. The cardinal ligaments and the remainder of the uterine vessels were identified, clamped, cut, and suture-ligated. The uterus, tubes, and left ovary were delivered intact through the vagina and sent to Pathology. Bleeding was noted bilaterally at the uterosacral pedicles. Hemostasis was obtained by transfixing the uterosacral pedicles to the vaginal angles. The vaginal cuff was closed with a vertical running lock stitch of 0 Vicryl suture. A 70-degree cystoscope was introduced through the urethra into the bladder. The ureteral orifices were noted bilaterally to efflux fluorescein-stained urine. There were no obvious lesions of the bladder. Pneumoperitoneum was re-established and the pelvis was thoroughly inspected, and no active bleeding noted. The pelvis was irrigated. All instruments were removed from the abdomen. All the skin incisions were closed with subcuticular stitches of 4-0 Monocryl. All sponge, lap, and needle counts were correct x2. [id number] / MODL /[id number] MTDD
[2021-06-10] MEDS ORDERED: Docusate Sodium 100 MG Cap PO SCH (21:00)
[2021-06-11 06:17] LABS: BLOOD UREA NITROGEN,BUN 10 mg/dL (7.0-18.0); CARBON DIOXIDE,CO2 28.5 mmol/L (21.0-32.0); CHLORIDE,CL 105 mmol/L (98-107); GLUCOSE RANDOM 122 mg/dL (74-106); POTASSIUM,K 4.5 mmol/L (3.5-5.1); SODIUM,NA 138 mmol/L (136-145)
--- NOTE | 2021-06-11 09:05 | PCM.PN ---
- General Info Date of Service: 06/11/21 Subjective Update: Patient states she is doing very well. Rates pain as 0/10. Minimal bleeding. Ambulating in room and voided last night. Functional Status: Reports: Pain Controlled, Tolerating Diet, Ambulating, Urinating - Review of Systems General: Reports: No Symptoms HEENT: Reports: No Symptoms Pulmonary: Reports: No Symptoms Cardiovascular: Reports: No Symptoms Gastrointestinal: Reports: No Symptoms Genitourinary: Reports: No Symptoms Musculoskeletal: Reports: No Symptoms Skin: Reports: No Symptoms Neurological: Reports: No Symptoms Psychiatric: Reports: No Symptoms - Patient Data Vitals - Most Recent: Last Vital Signs Temp 37.2 C 06/11/21 08:00 Pulse 70 06/11/21 08:00 Resp 18 06/11/21 08:00 BP 118/87 06/11/21 08:00 Pulse Ox 97 06/11/21 08:00 Weight - Most Recent: 103.419 kg I&O - Last 24 Hours: Intake & Output 06/10/21 06/11/21 06/11/21 22:59 06:59 14:59 Output Total 600 800 Balance -600 -800 Lab Results Last 24 Hours: Laboratory Results - last 24 hr 06/10/21 06/10/21 06/10/21 Range/Units 08:13 08:13 08:13 WBC 9.93 (4.0-11.0) K/uL RBC 4.57 (4.30-5.90) M/uL Hgb 10.1 L (12.0-16.0) g/dL Hct 32.9 L (36.0-46.0) % MCV 72.0 L (80.0-98.0) fL MCH 22.1 L (27.0-32.0) pg MCHC 30.7 L (31.0-37.0) g/dL RDW Std Deviation 48.7 (28.0-62.0) fl RDW Coeff of Ronni 19 H (11.0-15.0) % Plt Count 613 H (150-400) K/uL MPV 9.50 (7.40-12.00) fL Neut % (Auto) (48.0-80.0) % Lymph % (Auto) (16.0-40.0) % [place] % (Auto) (0.0-15.0) % Eos % (Auto) (0.0-7.0) % Baso % (Auto) (0.0-1.5) % Neut # (Auto) (1.4-5.7) K/uL Lymph # (Auto) (0.6-2.4) K/uL [place] # (Auto) (0.0-0.8) K/uL Eos # (Auto) (0.0-0.7) K/uL Baso # (Auto) (0.0-0.1) K/uL Add Manual Diff YES Neutrophils % (Manual) 63 (48.0-80.0) % Lymphocytes % (Manual) 32 (16.0-40.0) % Monocytes % (Manual) 5 (0.0-15.0) % Nucleated RBC % 0.0 /100WBC Absolute Seg Neuts 6.3 H (1.4-5.7) Lymphocytes # (Manual) 3.2 H (0.6-2.4) Monocytes # (Manual) 0.5 (0.0-0.8) Nucleated RBCs # 0 K/uL Platelet Estimate INCREASED Sodium 139 (136-145) mmol/L Potassium 3.7 (3.5-5.1) mmol/L Chloride 104 (98-107) mmol/L Carbon Dioxide 28.4 (21.0-32.0) mmol/L BUN 17 (7.0-18.0) mg/dL Creatinine 0.9 (0.6-1.0) mg/dL Est Cr Clr Drug Dosing 101.87 mL/min Estimated GFR (MDRD) > 60.0 ml/min Glucose 100 (74-106) mg/dL Calcium 8.7 (8.5-10.1) mg/dL Blood Type O POSITIVE Antibody Screen NEGATIVE 06/11/21 06/11/21 Range/Units 05:30 05:30 WBC 11.51 H (4.0-11.0) K/uL RBC 3.54 L (4.30-5.90) M/uL Hgb 7.8 L (12.0-16.0) g/dL Hct 25.5 L (36.0-46.0) % MCV 72.0 L (80.0-98.0) fL MCH 22.0 L (27.0-32.0) pg MCHC 30.6 L (31.0-37.0) g/dL RDW Std Deviation 49.7 (28.0-62.0) fl RDW Coeff of Ronni 19 H (11.0-15.0) % Plt Count 496 H (150-400) K/uL MPV 9.60 (7.40-12.00) fL Neut % (Auto) 72.9 (48.0-80.0) % Lymph % (Auto) 16.6 (16.0-40.0) % [place] % (Auto) 10.4 (0.0-15.0) % Eos % (Auto) 0.0 (0.0-7.0) % Baso % (Auto) 0.1 (0.0-1.5) % Neut # (Auto) 8.4 H (1.4-5.7) K/uL Lymph # (Auto) 1.9 (0.6-2.4) K/uL [place] # (Auto) 1.2 H (0.0-0.8) K/uL Eos # (Auto) 0.0 (0.0-0.7) K/uL Baso # (Auto) 0.0 (0.0-0.1) K/uL Add Manual Diff Neutrophils % (Manual) (48.0-80.0) % Lymphocytes % (Manual) (16.0-40.0) % Monocytes % (Manual) (0.0-15.0) % Nucleated RBC % 0.0 /100WBC Absolute Seg Neuts (1.4-5.7) Lymphocytes # (Manual) (0.6-2.4) Monocytes # (Manual) (0.0-0.8) Nucleated RBCs # 0 K/uL Platelet Estimate Sodium 138 (136-145) mmol/L Potassium 4.5 (3.5-5.1) mmol/L Chloride 105 (98-107) mmol/L Carbon Dioxide 28.5 (21.0-32.0) mmol/L BUN 10 (7.0-18.0) mg/dL Creatinine 0.8 (0.6-1.0) mg/dL Est Cr Clr Drug Dosing 114.60 mL/min Estimated GFR (MDRD) > 60.0 ml/min Glucose 122 H (74-106) mg/dL Calcium 8.2 L (8.5-10.1) mg/dL Blood Type Antibody Screen Med Orders - Current: Current Medications Albuterol (Albuterol 0.083% 2.5 Mg/3 Ml Neb Soln) 2.5 mg NEB ONETIME PRN PRN Reason: Wheezing Docusate Sodium (Docusate Sodium 100 Mg Cap) 100 mg PO BID [facility] Last Admin: 06/10/21 21:24 Dose: 100 mg Documented by: Droperidol (Droperidol 5 Mg/2 Ml Sdv) 0.625 mg IVPUSH ONETIME PRN PRN Reason: Nausea/Vomiting Fentanyl (Fentanyl 100 Mcg/2 Ml Sdv) 50 mcg IVPUSH Q5M PRN PRN Reason: Pain (mild 1-3) Hydromorphone HCl (Hydromorphone 1 Mg/Ml Syringe) 1 mg IVPUSH Q10M PRN PRN Reason: Pain (moderate 4-6) Lactated Ringer's (Ringers, Lactated) 1,000 mls @ 125 mls/hr IV ASDIRECTED [facility] Last Admin: 06/10/21 13:00 Dose: 125 mls/hr Documented by: Ibuprofen (Ibuprofen 800 Mg Tab) 800 mg PO Q8H PRN PRN Reason: Pain (mild 1-3) Ketorolac Tromethamine (Ketorolac 30 Mg/Ml Sdv) 30 mg IVPUSH Q6H PRN PRN Reason: Pain (severe 7-10) Stop: 06/15/21 12:31 Metoclopramide HCl (Metoclopramide 10 Mg/2 Ml Sdv) 10 mg IVPUSH ONETIME PRN PRN Reason: Nausea/Vomiting Morphine Sulfate (Morphine 2 Mg/Ml Syringe) 2 mg IVPUSH Q10M PRN PRN Reason: Pain (severe 7-10) Morphine Sulfate (Morphine 4 Mg/Ml Vial) 4 mg IVPUSH Q2H PRN PRN Reason: Pain (severe 7-10) Naloxone HCl (Naloxone 0.4 Mg/Ml Sdv) 0.1 mg IVPUSH ASDIRECTED PRN PRN Reason: Respiratory Depression Ondansetron HCl (Ondansetron 4 Mg/2 Ml Sdv) 4 mg IVPUSH ONETIME PRN PRN Reason: Nausea/Vomiting Ondansetron HCl (Ondansetron 4 Mg/2 Ml Sdv) 4 mg IVPUSH Q6H PRN PRN Reason: Nausea/Vomiting Oxycodone/Acetaminophen (Acetaminophen/Oxycodone 325-5 Mg Tab) 1 tab PO Q4H PRN PRN Reason: Pain (moderate 4-6) Oxycodone/Acetaminophen (Acetaminophen/Oxycodone 325-5 Mg Tab) 2 tab PO Q4H PRN PRN Reason: Pain (moderate 4-6) Promethazine HCl (Promethazine 25 Mg/Ml Sdv) 25 mg IM Q6H PRN PRN Reason: Nausea/Vomiting Discontinued Medications Bupivacaine HCl (Bupivacaine 0.25% 10 Ml Sdv) Confirm Administered Dose 10 ml .ROUTE .STK-MED ONE Stop: 06/10/21 07:33 Dexamethasone (Dexamethasone 4 Mg/Ml 5 Ml Mdv) Confirm Administered Dose 20 mg .ROUTE .STK-MED ONE Stop: 06/10/21 09:32 Fentanyl (Fentanyl 100 Mcg/2 Ml Sdv) Confirm Administered Dose 100 mcg .ROUTE .STK-MED ONE Stop: 06/10/21 08:51 Fentanyl (Fentanyl 100 Mcg/2 Ml Sdv) Confirm Administered Dose 100 mcg .ROUTE .STK-MED ONE Stop: 06/10/21 10:44 Fluorescein Sodium (Fluorescein 5 Ml Vial) Confirm Administered Dose 5 ml .ROUTE .STK-MED ONE Stop: 06/10/21 07:33 Hydromorphone HCl (Hydromorphone 2 Mg/Ml Syringe) Confirm Administered Dose 2 mg .ROUTE .STK-MED ONE Stop: 06/10/21 10:32 Cefazolin Sodium/Dextrose (Ancef) Confirm Administered Dose 50 mls @ as directed .ROUTE .STK-MED ONE Stop: 06/10/21 09:34 Acetaminophen (Ofirmev 1000 Mg/100 Ml) Confirm Administered Dose 100 mls @ as directed .ROUTE .STK-MED ONE Stop: 06/10/21 09:34 Iron Sucrose 300 mg/ Sodium (Chloride) 265 mls @ 265 mls/hr IV ONETIME ONE Stop: 06/10/21 15:59 Last Admin: 06/10/21 15:19 Dose: 265 mls/hr Documented by: Ketorolac Tromethamine (Ketorolac 30 Mg/Ml Sdv) Confirm Administered Dose 30 mg .ROUTE .STK-MED ONE Stop: 06/10/21 12:26 Ketorolac Tromethamine (Ketorolac 30 Mg/Ml Sdv) 30 mg IVPUSH ONETIME ONE Stop: 06/10/21 12:32 Methylene Blue (Methylene Blue 50 Mg/10 Ml Ampule) Confirm Administered Dose 50 mg .ROUTE .STK-MED ONE Stop: 06/10/21 07:33 Midazolam HCl (Midazolam 1 Mg/Ml 2 Ml Sdv) Confirm Administered Dose 2 mg .ROUTE .STK-MED ONE Stop: 06/10/21 09:32 Ondansetron HCl (Ondansetron 4 Mg/2 Ml Sdv) Confirm Administered Dose 4 mg .ROUTE .STK-MED ONE Stop: 06/10/21 08:52 Ondansetron HCl (Ondansetron 4 Mg/2 Ml Sdv) Confirm Administered Dose 4 mg .ROUTE .STK-MED ONE Stop: 06/10/21 08:52 Propofol (Propofol 200 Mg/20 Ml Sdv) Confirm Administered Dose 200 mg .ROUTE .STK-MED ONE Stop: 06/10/21 08:51 Rocuronium [place] (Rocuronium [place] 50 Mg/5 Ml Syringe) Confirm Administered Dose 50 mg .ROUTE .STK-MED ONE Stop: 06/10/21 08:51 Scopolamine (Scopolamine 1.5 Mg Transdermal Patch) Confirm Administered Dose 1.5 mg .ROUTE .STK-MED ONE Stop: 06/10/21 07:36 Last Admin: 06/10/21 08:25 Dose: 1.5 mg Documented by: Sugammadex Sodium (Sugammadex Sodium 200 Mg/2 Ml Vial) Confirm Administered Dose 200 mg .ROUTE .STK-MED ONE Stop: 06/10/21 08:52 - Exam Urinary Catheter Total Time: 0Days 10Hours General: Alert, Oriented Neck: Supple Lungs: Normal Respiratory Effort GI/Abdominal Exam: Soft, Non-Tender, No Distention Extremities: Non-Tender, No Pedal Edema Skin: Warm, Dry, Intact Wound/Incisions: Dressing Dry and Intact Neurological: No New Focal Deficit Psy/Mental Status: Alert, Normal Affect, Normal Mood - Patient Data Lab Results Last 24 hrs: Laboratory Results - last 24 hr 06/10/21 06/10/21 06/10/21 Range/Units 08:13 08:13 08:13 WBC 9.93 (4.0-11.0) K/uL RBC 4.57 (4.30-5.90) M/uL Hgb 10.1 L (12.0-16.0) g/dL Hct 32.9 L (36.0-46.0) % MCV 72.0 L (80.0-98.0) fL MCH 22.1 L (27.0-32.0) pg MCHC 30.7 L (31.0-37.0) g/dL RDW Std Deviation 48.7 (28.0-62.0) fl RDW Coeff of Ronni 19 H (11.0-15.0) % Plt Count 613 H (150-400) K/uL MPV 9.50 (7.40-12.00) fL Neut % (Auto) (48.0-80.0) % Lymph % (Auto) (16.0-40.0) % [place] % (Auto) (0.0-15.0) % Eos % (Auto) (0.0-7.0) % Baso % (Auto) (0.0-1.5) % Neut # (Auto) (1.4-5.7) K/uL Lymph # (Auto) (0.6-2.4) K/uL [place] # (Auto) (0.0-0.8) K/uL Eos # (Auto) (0.0-0.7) K/uL Baso # (Auto) (0.0-0.1) K/uL Add Manual Diff YES Neutrophils % (Manual) 63 (48.0-80.0) % Lymphocytes % (Manual) 32 (16.0-40.0) % Monocytes % (Manual) 5 (0.0-15.0) % Nucleated RBC % 0.0 /100WBC Absolute Seg Neuts 6.3 H (1.4-5.7) Lymphocytes # (Manual) 3.2 H (0.6-2.4) Monocytes # (Manual) 0.5 (0.0-0.8) Nucleated RBCs # 0 K/uL Platelet Estimate INCREASED Sodium 139 (136-145) mmol/L Potassium 3.7 (3.5-5.1) mmol/L Chloride 104 (98-107) mmol/L Carbon Dioxide 28.4 (21.0-32.0) mmol/L BUN 17 (7.0-18.0) mg/dL Creatinine 0.9 (0.6-1.0) mg/dL Est Cr Clr Drug Dosing 101.87 mL/min Estimated GFR (MDRD) > 60.0 ml/min Glucose 100 (74-106) mg/dL Calcium 8.7 (8.5-10.1) mg/dL Blood Type O POSITIVE Antibody Screen NEGATIVE 06/11/21 06/11/21 Range/Units 05:30 05:30 WBC 11.51 H (4.0-11.0) K/uL RBC 3.54 L (4.30-5.90) M/uL Hgb 7.8 L (12.0-16.0) g/dL Hct 25.5 L (36.0-46.0) % MCV 72.0 L (80.0-98.0) fL MCH 22.0 L (27.0-32.0) pg MCHC 30.6 L (31.0-37.0) g/dL RDW Std Deviation 49.7 (28.0-62.0) fl RDW Coeff of Ronni 19 H (11.0-15.0) % Plt Count 496 H (150-400) K/uL MPV 9.60 (7.40-12.00) fL Neut % (Auto) 72.9 (48.0-80.0) % Lymph % (Auto) 16.6 (16.0-40.0) % [place] % (Auto) 10.4 (0.0-15.0) % Eos % (Auto) 0.0 (0.0-7.0) % Baso % (Auto) 0.1 (0.0-1.5) % Neut # (Auto) 8.4 H (1.4-5.7) K/uL Lymph # (Auto) 1.9 (0.6-2.4) K/uL [place] # (Auto) 1.2 H (0.0-0.8) K/uL Eos # (Auto) 0.0 (0.0-0.7) K/uL Baso # (Auto) 0.0 (0.0-0.1) K/uL Add Manual Diff Neutrophils % (Manual) (48.0-80.0) % Lymphocytes % (Manual) (16.0-40.0) % Monocytes % (Manual) (0.0-15.0) % Nucleated RBC % 0.0 /100WBC Absolute Seg Neuts (1.4-5.7) Lymphocytes # (Manual) (0.6-2.4) Monocytes # (Manual) (0.0-0.8) Nucleated RBCs # 0 K/uL Platelet Estimate Sodium 138 (136-145) mmol/L Potassium 4.5 (3.5-5.1) mmol/L Chloride 105 (98-107) mmol/L Carbon Dioxide 28.5 (21.0-32.0) mmol/L BUN 10 (7.0-18.0) mg/dL Creatinine 0.8 (0.6-1.0) mg/dL Est Cr Clr Drug Dosing 114.60 mL/min Estimated GFR (MDRD) > 60.0 ml/min Glucose 122 H (74-106) mg/dL Calcium 8.2 L (8.5-10.1) mg/dL Blood Type Antibody Screen Result Diagrams: 06/11/21 05:30 06/11/21 05:30 Sepsis Event Note - Evaluation Sepsis Screening Result: No Definite Risk - Focused Exam Vital Signs: Vital Signs Temp Pulse Resp BP Pulse Ox 06/11/21 08:00 37.2 C 70 18 118/87 97 06/11/21 04:00 37.2 C 60 17 132/82 100 06/11/21 00:00 36.8 C 65 16 136/80 98 - Problem List & Annotations (1) S/P hysterectomy SNOMED Code(s): 543248103, 752515149, 421200091 Code(s): Z90.710 - ACQUIRED ABSENCE OF BOTH CERVIX AND UTERUS Status: Acute Current Visit: Yes (2) Heavy menses SNOMED Code(s): 589886333 Code(s): N92.0 - EXCESSIVE AND FREQUENT MENSTRUATION WITH REGULAR CYCLE St atus: Acute Current Visit: Yes - Problem List Review Problem List Initiated/Reviewed/Updated: Yes - My Orders Last 24 Hours: My Active Orders 06/10/21 12:31 Patient Status [ADT] Routine May Shower [RC] ASDIRECTED Notify Provider Intake and Out [RC] ASDIRECTED Notify Provider Vital Signs [RC] ASDIRECTED Oxygen Therapy [RC] ASDIRECTED RT Incentive Spirometry [RC] Q2HWA Up ad Elvia [RC] PER UNIT ROUTINE Vital Signs [RC] Q4H Acetaminophen/oxyCODONE [Percocet 325-5 MG] 1 tab PO Q4H PRN Acetaminophen/oxyCODONE [Percocet 325-5 MG] 2 tab PO Q4H PRN Ketorolac [Toradol] 30 mg IVPUSH Q6H PRN Morphine 4 mg IVPUSH Q2H PRN Ondansetron [Zofran] 4 mg IVPUSH Q6H PRN Promethazine [Phenergan] 25 mg IM Q6H PRN Peripheral IV Discontinue [OM.PC] Routine Sequential Compression Device [OM.PC] Per Unit Routine Resuscitation Status Routine 06/10/21 12:32 Antiembolic Devices [RC] PER UNIT ROUTINE Intake and Output [RC] PER UNIT ROUTINE 06/10/21 12:33 Abdominal Binder [OM.PC] Per Unit Routine 06/10/21 Dinner Regular Diet [DIET] 06/10/21 21:00 Docusate Sodium [Colace] 100 mg PO BID 06/11/21 09:02 Ready for Discharge [RC] PER UNIT ROUTINE 06/15/21 18:30 Ibuprofen [Motrin] 800 mg PO Q8H PRN - Assessment Assessment:: 36yo s/p LAVH, BS, LO, VENKAT, cystoscopy for heavy menstrual bleeding, POD#1 - Plan Plan:: Discharge home today, patient meeting all post-op milestones. Reviewed discharge instructions/precautions. All questions answered. Follow-up in 2 weeks in clinic.
[2021-06-15] MEDS ORDERED: Ibuprofen 800 MG Tab PO PRN (18:30)
== END 2021-06-11 09:20 | disposition home or self-care (01) ==
LOC: MW.SDS 08:06 → MW.OB 12:31 → MW.SDS 06-11 09:20
PROVIDERS: ATTEND Obstetrics & Gynecology
DX: D25.9 Leiomyoma of uterus, unspecified (principal); N83.202 Unspecified ovarian cyst, left side; N72 Inflammatory disease of cervix uteri; Z90.49 Acquired absence of other specified parts of digestive tract; F17.220 Nicotine dependence, chewing tobacco, uncomplicated; Z88.2 Allergy status to sulfonamides; Z91.013 Allergy to seafood; Z91.018 Allergy to other foods
CPT/HCPCS: 36415; 58552; 80048; 85025; 86850; 86900; 86901; A9270; J0131; J0690; J1100; J1170; J1756; J2250; J2704; J3010; J3490; J7030; J7050; J7120; 00944; J1885; J2405